=== PATIENT | female | born 1935 | race Caucasian/White ===

== ENCOUNTER 2019-03-17 12:51 | Inpatient (IN) | payer MEDICARE ==
[2019-03-17] MEDS ORDERED: guaiFENesin 100 MG/5 ML UDCUP PO PRN (15:51)
[2019-03-17] MEDS ORDERED: Calcium Carbonate 500 MG ChewTAB PO PRN (15:51)
[2019-03-17] MEDS ORDERED: Acetaminophen 325 MG TAB PO PRN (15:51)
[2019-03-17] MEDS ORDERED: Calcium Carbonate 500 MG TAB PO PRN (15:51)
[2019-03-17] MEDS ORDERED: Loperamide HCl 2 MG CAP PO PRN (15:51)
[2019-03-17] MEDS ORDERED: Milk Of Magnesia 30 ML UDCUP PO PRN (15:51)
[2019-03-17] MEDS ORDERED: Bisacodyl 10 MG SUPP PR PRN (15:51)
[2019-03-17] MEDS: Amlodipine 5 MG TAB PO SCH (20:04)
[2019-03-17] MEDS: Gabapentin 400 MG CAP PO SCH (20:04)
[2019-03-17] MEDS: Amitriptyline HCl 25 MG TAB PO SCH (20:04)
[2019-03-18] MEDS: Polyethylene Glycol 3350 17 GM Packet PO SCH (08:35)
[2019-03-18] MEDS: Gabapentin 400 MG CAP PO SCH ×3 (08:35→20:27)
[2019-03-18] MEDS: Enoxaparin Sodium 30 MG/0.3 ML SYRINGE SC SCH (08:36)
[2019-03-18] MEDS: HYDROcodone/Acetaminophen 5/325 mg Tablet PO PRN ×3 (11:13→23:13)
[2019-03-18 19:39] LABS: ALT (SGPT) 31 U/L (8-55); AST (SGOT) 24 U/L (5-34); Albumin 3.7 g/dL (3.4-4.8); Alkaline Phosphatase 98 U/L (40-110); Anion Gap 15 mmol/L (10-20); BUN (Urea Nitrogen) 25 mg/dL (9.8-20.1); Bilirubin, Total 0.3 mg/dL (0.2-1.2); Calc. Creatinine Clearance 61 mL/min (70-130); Calcium 9.1 mg/dL (7.8-10.44); Carbon Dioxide 22 mmol/L (23-31); Chloride 107 mmol/L (98-107); Estimated GFR-MDRD 48; Globulin 2.9 g/dL (2.4-3.5); Glucose 172 mg/dL (83-110); Potassium 4.1 mmol/L (3.5-5.1); Protein, Total 6.6 g/dL (6.0-8.3); Sodium 140 mmol/L (136-145)
[2019-03-18 20:16] LABS: #Eosinphils 0.2 thou/uL (0.0-0.7); #Lymphocytes 1.1 thou/uL (1.20-3.40); #Monocytes 0.5 thou/uL (0.11-0.59); #Neutrophils 3.4 thou/uL (1.40-6.50); %Basophils 0.8 % (0.0-1.0); %Eosinophils 3.7 % (0.0-10.0); %Lymphocytes 20.8 % (21.0-51.0); %Neutrophils 65.7 % (42.0-75.0); Hemoglobin 9.1 g/dL (12.0-16.0); Hypochromia SLIGHT = 6-15 cells (100X) (0-5/hpf); MDiff Complete? YES; Mean Corpuscular HGB CONC 29.5 g/dL (32.0-36.0); Mean Corpuscular Hemoglobin 21.1 pg (27.0-31.0); Mean Corpuscular Volume 71.6 fL (78.0-98.0); Mean Platelet Volume 8.2 fL (7.4-10.4); Microcytosis MODERATE=15-30 cells (100X) (0-5/hpf); Ovalocytes SLIGHT = 2-5 cells (100X) (0-1/hpf); Platelet Count 308 thou/uL (130-400); Platelet Morphology Comment Appears Adequate; RBC Distribution Width 17.3 % (11.5-14.5); Red Blood Cell (RBC) Count 4.29 mill/uL (4.20-5.40); White Blood Cell (WBC) Count 5.1 thou/uL (4.8-10.8)
[2019-03-18] MEDS: Amitriptyline HCl 25 MG TAB PO SCH (20:27)
[2019-03-18] MEDS: Amlodipine 5 MG TAB PO SCH (20:27)
[2019-03-19] MEDS: HYDROcodone/Acetaminophen 5/325 mg Tablet PO PRN ×4 (06:28→20:05)
--- NOTE | 2019-03-19 09:09 | HP ---
Date of admission to the skilled unit, March 18, 2019. HISTORY OF PRESENT ILLNESS: The patient is an unfortunate 83-year-old white female who has been found to have significant lumbar spinal stenosis and right lumbar foraminal stenosis with a severe right lumbar radiculopathy causing her to have weakness and pain in her right leg. She has been seen by Neurosurgery and given epidural steroid injection with minimal relief from her pain. She has been attempted to have physical therapy at [facility] for 2 weeks with minimal improvement. She is due to see Dr. Caldera on March 22 for followup and evaluation of treatment. She has had extensive lumbar surgery [address] Vieyra with placement of screws and with removal of two out of four screws several years ago. She had been doing well until several months ago when she began to have increasing right lower back pain and leg pain. She has comorbidities of diastolic heart failure and hypertension, which has been fairly well controlled with some titration of her medications while she is in [facility]. She has had no problems with shortness of breath, chest pain, palpitations with exertion. She did have some mild exacerbation of her chronic kidney disease, stage 3 to stage 4, but improved with discontinuation of her diuretic. She was admitted to [facility] to continue therapy until hopefully she can be evaluated for possible lumbar surgery by Dr. Caldera. PAST MEDICAL HISTORY: Also positive for hypertension, depression, gastroesophageal reflux, and chronic kidney disease, stage 3, as mentioned above. PAST SURGICAL HISTORY: Positive for lumbar laminectomy in place with screws, appendectomy, hysterectomy, tonsillectomy, bilateral knee surgeries, and . MEDICATIONS: Her medications included on admission: 1. Hydrocodone 5/325 every 4 hours as needed. 2. Amlodipine 5 mg nightly. 3. Amitriptyline 25 mg nightly. 4. Acetaminophen 325 mg every 4 hours as needed. 5. Benazepril 10 mg every morning. 6. Protonix 40 mg daily. 7. MiraLAX 17 g daily. 8. Sertraline 100 mg daily. FAMILY MEDICAL HISTORY: Noncontributory. SOCIAL HISTORY: She lives with her daughter who works daily. She is a nonsmoker, nondrinker. REVIEW OF SYSTEMS: HEENT: She denies change in vision or hearing, hoarseness, dysphagia, headaches, or dizziness. PULMONARY: She denies cough, sputum production, pneumonia, asthma, or tuberculosis. CARDIOVASCULAR: She denies shortness of breath, chest pain, palpitations, orthopnea, paroxysmal nocturnal dyspnea, or edema. GASTROINTESTINAL: She denies nausea, vomiting, diarrhea, constipation, or abdominal pain. GENITOURINARY: She denies dysuria, hematuria, or nocturia. She does have some urgency at times. MUSCULOSKELETAL: She has pain in her right knee. NEUROLOGIC: She has paresthesias and pain in the right hip, buttock, lower back, and knee. PHYSICAL EXAMINATION: GENERAL: The patient is an elderly white female, alert, oriented, lucid, in no acute distress. VITAL SIGNS: Showed to have blood pressure of 120/57, O2 sats 93% on room air, respirations 16, pulse 80, and afebrile. HEENT: Pupils are equal, round, and reactive to light and accommodation. Sclerae anicteric. Conjunctivae pale. Oral mucous membranes well hydrated. NECK: Supple. There are no nodes or masses. JVP is not elevated. LUNGS: Clear. CARDIAC: Regular rhythm. No gallops or murmurs. ABDOMEN: Soft and nontender. No masses or organomegaly. SKIN/EXTREMITIES: Show positive straight leg raise on the right at 30 degrees. Tenderness to palpation of the right knee. There is no pain on palpation of the right hip. There is some tenderness to palpation of the lower back. NEUROLOGICAL: Cranial nerves are intact. Deep tendon reflex 2+ and equal. Absent Babinski. There is normal strength with paresthesias in the right leg and pain on movement. LABORATORY: Shows most recent creatinine is 1.02, BUN is 23, sodium 139, potassium 4.4, chloride 109, and bicarb 21. Hematocrit 31, hemoglobin 9.6, and white count 7400. ASSESSMENT: 1. An 83-year-old white female with history of hypertension, controlled to goal. 2. 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 Admitted for continue therapy until seen by Dr. Caldera on March 22 for possible surgery. 3. Chronic kidney disease with recent exacerbation of chronic kidney disease, stage 4, now stable. PLAN: 1. Obtain CBC, comp met. 2. Continue PT/OT. 3. Continue pain relief with [place]. 4. Continue blood pressure control with amlodipine and benazepril. 5. Continue stress ulcer prophylaxis DVT prophylaxis with Lovenox. Job ID: [id number]
[2019-03-19] MEDS: Gabapentin 400 MG CAP PO SCH ×3 (09:53→20:06)
[2019-03-19] MEDS: Enoxaparin Sodium 30 MG/0.3 ML SYRINGE SC SCH (09:54)
[2019-03-19] MEDS: Polyethylene Glycol 3350 17 GM Packet PO SCH ×2 (09:54→10:00)
[2019-03-19] MEDS: Amitriptyline HCl 25 MG TAB PO SCH (20:06)
[2019-03-19] MEDS: Amlodipine 5 MG TAB PO SCH (20:06)
[2019-03-20] MEDS: HYDROcodone/Acetaminophen 5/325 mg Tablet PO PRN ×4 (00:45→19:24)
[2019-03-20] MEDS: Gabapentin 400 MG CAP PO SCH ×3 (08:28→20:15)
[2019-03-20] MEDS: Polyethylene Glycol 3350 17 GM Packet PO SCH (08:28)
[2019-03-20] MEDS: Enoxaparin Sodium 30 MG/0.3 ML SYRINGE SC SCH (08:28)
[2019-03-20] MEDS: Amitriptyline HCl 25 MG TAB PO SCH (20:15)
[2019-03-20] MEDS: Amlodipine 5 MG TAB PO SCH (20:15)
--- NOTE | 2019-03-21 06:55 | PRG ---
DATE OF SERVICE: 03/19/2019 SUBJECTIVE: The patient is sitting up in a wheelchair, getting ready for therapy, stating that she has significant pain on any therapy and her leg fran, but is walking with a walker a few feet. She has no pain at rest. She is having no headaches, dizziness, shortness of breath or chest pain. OBJECTIVE: VITAL SIGNS: Temperature is 97, pulse 95, respirations 18, O2 sats 97% on room air, blood pressure is 140/76. LUNGS: Clear. CARDIAC EXAMINATION: Shows regular rhythm. ABDOMEN: Soft, nontender. SKIN/EXTREMITIES: Showed no edema, clubbing, cyanosis. There is tenderness to palpation in the right lower back and on extension of the right leg. LABORATORY DATA: Laboratories done yesterday showed a white count of 5100, hematocrit of 30, hemoglobin 9.1. Sodium 140, potassium 4.1, chloride 107, bicarb 22, BUN 25, creatinine 1.08, glucose 172, calcium 9.1, total bilirubin 0.3, AST 24, ALT 31, alkaline phosphatase 99, albumin 3.7. ASSESSMENT: 1. Hypertension, controlled to goal. 2. Right L4 lumbar radiculopathy persistent with minimal improvement with physical therapy, but cooperating. 3. Chronic kidney disease stage 4, which has improved to stage 3. 4. Depression and anxiety, stable. PLAN: Continue PT, OT until seen by neurosurgeon on March 22. Job ID: [id number]
--- NOTE | 2019-03-21 07:06 | PRG ---
DATE OF SERVICE: 03/20/2019 SUBJECTIVE: The patient is sitting up in the chair, talking to daughter, arranging transportation to neurosurgeon. She is pain-free at rest, but is unable to walk without assistance because of pain and weakness in her leg. OBJECTIVE: VITAL SIGNS: Show temperature 98.3, pulse 80, respirations 20, O2 sats 98% on room air, blood pressure fluctuating between 137/73 and 174/78. LUNGS: Clear. CARDIAC EXAMINATION: Shows regular rhythm. ABDOMEN: Soft and nontender. SKIN/EXTREMITIES: Showed no edema. ASSESSMENT: 1. Stable L4-L5 lumbar radiculopathy with minimal improvement with PT. 2. Hypertension, controlled to goal. 3. Chronic kidney disease, stage 3. PLAN: 1. Arrange for ambulance transfer to neurosurgeon on March 22, to be there at 10 o'clock as daughter states she cannot load and unload the patient without assistance. 2. Continue pain relief as needed. 3. Continue to monitor vital signs with fluctuation, most likely due to pain. Job ID: [id number]
[2019-03-21] MEDS: Polyethylene Glycol 3350 17 GM Packet PO SCH (09:25)
[2019-03-21] MEDS: Gabapentin 400 MG CAP PO SCH ×3 (09:25→20:22)
[2019-03-21] MEDS: Enoxaparin Sodium 30 MG/0.3 ML SYRINGE SC SCH (09:25)
[2019-03-21] MEDS: HYDROcodone/Acetaminophen 5/325 mg Tablet PO PRN ×2 (13:42→20:22)
[2019-03-21] MEDS: Amitriptyline HCl 25 MG TAB PO SCH (20:23)
[2019-03-21] MEDS: Amlodipine 5 MG TAB PO SCH (20:23)
--- NOTE | 2019-03-21 21:11 | PRG ---
DATE OF SERVICE: 03/21/2019 SUBJECTIVE: The patient feels well sitting in the chair, but states she had significant pain today on any ambulation even to the bathroom. She is due to see neurosurgeon tomorrow morning and is hopeful that he will agree to surgically repair her lumbar stenosis and radiculopathy. OBJECTIVE: VITAL SIGNS: Shows her temperature is 98.5, pulse 94, respirations 18, O2 saturations 96% on room air, blood pressure 149/73. LUNGS: Clear. CARDIAC: Regular rhythm. SKIN/EXTREMITIES: Show no edema. ASSESSMENT: 1. Stable lumbar spinal stenosis with lumbar radiculopathy with minimal improvement with PT and epidural steroid. 2. Hypertension, controlled to goal. 3. Chronic kidney disease, stage 3, stable. PLAN: Follow up with Neurosurgery tomorrow and hopefully be scheduled for laminectomy and to return for postop physical therapy. Job ID: [id number]
[2019-03-22] MEDS: Enoxaparin Sodium 30 MG/0.3 ML SYRINGE SC SCH (08:20)
[2019-03-22] MEDS: Gabapentin 400 MG CAP PO SCH ×3 (08:21→20:15)
[2019-03-22] MEDS: Polyethylene Glycol 3350 17 GM Packet PO SCH (08:21)
[2019-03-22] MEDS: HYDROcodone/Acetaminophen 5/325 mg Tablet PO PRN ×3 (08:22→20:15)
[2019-03-22] MEDS: Amlodipine 5 MG TAB PO SCH (20:15)
[2019-03-22] MEDS: Amitriptyline HCl 25 MG TAB PO SCH (20:16)
[2019-03-23] MEDS: Gabapentin 400 MG CAP PO SCH ×3 (08:22→20:55)
[2019-03-23] MEDS: Polyethylene Glycol 3350 17 GM Packet PO SCH (08:22)
[2019-03-23] MEDS: Enoxaparin Sodium 30 MG/0.3 ML SYRINGE SC SCH (08:22)
[2019-03-23] MEDS: HYDROcodone/Acetaminophen 5/325 mg Tablet PO PRN ×2 (08:23→20:54)
[2019-03-23] MEDS: Amitriptyline HCl 25 MG TAB PO SCH (20:55)
[2019-03-23] MEDS: Amlodipine 5 MG TAB PO SCH (20:55)
[2019-03-24] MEDS: Enoxaparin Sodium 30 MG/0.3 ML SYRINGE SC SCH (08:37)
[2019-03-24] MEDS: HYDROcodone/Acetaminophen 5/325 mg Tablet PO PRN ×2 (08:38→13:20)
[2019-03-24] MEDS: Polyethylene Glycol 3350 17 GM Packet PO SCH (08:39)
[2019-03-24] MEDS: Gabapentin 400 MG CAP PO SCH ×3 (08:39→20:43)
--- NOTE | 2019-03-24 09:43 | PRG ---
DATE OF SERVICE: 03/23/2019 SUBJECTIVE: The patient feels well, sitting up in the chair. States that Dr. Chacon and her daughter and she have agreed to schedule surgery and awaiting a date. She will continue on therapy until that time and is very happy. OBJECTIVE: VITAL SIGNS: Blood pressure is 164/72, temperature 98, pulse 76, respirations 18, O2 saturations 93% on room air. LUNGS: Clear. CARDIAC: Showed regular rhythm. ABDOMEN: Soft, nontender. ASSESSMENT: 1. Lumbar spinal stenosis and right L4-L5 radiculopathy awaiting surgical scheduling by Dr. Chacon. 2. Hypertension, controlled to goal. 3. Chronic kidney disease stage 3, stable. PLAN: 1. Continue PT and OT. 2. Continue pain relief. 3. Follow up with Dr. Chacon when scheduled. Job ID: [id number]
--- NOTE | 2019-03-24 09:43 | PRG ---
DATE OF SERVICE: 03/24/2019 SUBJECTIVE: The patient feels well at rest, but has pain on any ambulation and is going to see her surgeon today. OBJECTIVE: VITAL SIGNS: Showed temperature is 98.1, pulse 84, respirations 18, O2 saturations 96% on room air, blood pressure 165/77. LUNGS: Clear. CARDIAC: Showed regular rhythm. ABDOMEN: Soft and nontender. SKIN/EXTREMITIES: Showed some tenderness to palpation of the right lower back and on extension of the right leg. ASSESSMENT: 1. Lumbar spinal stenosis, status post multiple surgeries in the past with right L4-L5 radiculopathy. 2. Stable chronic kidney disease, stage 3. 3. Stable hypertension. PLAN: Follow up with Dr. Chacon today and hopefully schedule surgery. Job ID: [id number]
--- NOTE | 2019-03-24 09:45 | PRG ---
DATE OF SERVICE: 03/24/2019 SUBJECTIVE: The patient is sitting up in chair, eating breakfast, waiting for physical therapy. She states she feels well at rest and therapist states she did cooperate standing 5 minutes yesterday before the pain caused her to sit down. OBJECTIVE: VITAL SIGNS: Shows blood pressure is 150/70, temperature is 98, pulse 88, respirations 18, and O2 sats 96% on room air. LUNGS: Clear. CARDIAC: Showed regular rhythm. ABDOMEN: Soft and nontender. SKIN/EXTREMITIES: Show no edema, clubbing, or cyanosis. ASSESSMENT: 1. Stable L4-L5 radiculopathy, awaiting surgical repair. 2. Hypertension, controlled to goal. 3. Chronic kidney disease stage 3, stable. PLAN: 1. CBC, comprehensive metabolic panel in the a.m. 2. Continue PT/OT. 3. Await scheduling of surgery by Dr. Chacon. Job ID: [id number]
[2019-03-24] MEDS: Amitriptyline HCl 25 MG TAB PO SCH (20:42)
[2019-03-24] MEDS: Amlodipine 5 MG TAB PO SCH (20:42)
[2019-03-25 05:40] LABS: #Basophils 0.1 thou/uL (0.0-0.2); #Eosinphils 0.2 thou/uL (0.0-0.7); #Lymphocytes 1.4 thou/uL (1.20-3.40); #Monocytes 0.5 thou/uL (0.11-0.59); #Neutrophils 3.7 thou/uL (1.40-6.50); %Basophils 1.1 % (0.0-1.0); %Lymphocytes 23.5 % (21.0-51.0); %Monocytes 8.2 % (0.0-10.0); %Neutrophils 63.3 % (42.0-75.0); Hemoglobin 9.1 g/dL (12.0-16.0); MDiff Complete? YES; Mean Corpuscular HGB CONC 29.6 g/dL (32.0-36.0); Mean Corpuscular Volume 70.8 fL (78.0-98.0); Mean Platelet Volume 8.9 fL (7.4-10.4); Microcytosis MARKED = >30 cells (100X) (0-5/hpf); Ovalocytes SLIGHT = 2-5 cells (100X) (0-1/hpf); Platelet Count 306 thou/uL (130-400); Platelet Morphology Comment Appears Adequate; RBC Distribution Width 16.6 % (11.5-14.5); Red Blood Cell (RBC) Count 4.33 mill/uL (4.20-5.40); White Blood Cell (WBC) Count 5.9 thou/uL (4.8-10.8)
[2019-03-25 05:43] LABS: ALT (SGPT) 21 U/L (8-55); AST (SGOT) 17 U/L (5-34); Albumin 3.6 g/dL (3.4-4.8); Alkaline Phosphatase 87 U/L (40-110); Anion Gap 13 mmol/L (10-20); BUN (Urea Nitrogen) 22 mg/dL (9.8-20.1); Bilirubin, Total 0.2 mg/dL (0.2-1.2); Calc. Creatinine Clearance 63 mL/min (70-130); Carbon Dioxide 22 mmol/L (23-31); Chloride 107 mmol/L (98-107); Estimated GFR-MDRD 51; Globulin 2.7 g/dL (2.4-3.5); Glucose 113 mg/dL (83-110); Potassium 4.1 mmol/L (3.5-5.1); Protein, Total 6.3 g/dL (6.0-8.3); Sodium 138 mmol/L (136-145)
[2019-03-25] MEDS: Polyethylene Glycol 3350 17 GM Packet PO SCH (08:44)
[2019-03-25] MEDS: Enoxaparin Sodium 30 MG/0.3 ML SYRINGE SC SCH (08:45)
[2019-03-25] MEDS: Gabapentin 400 MG CAP PO SCH ×3 (08:45→20:03)
[2019-03-25] MEDS: Amitriptyline HCl 25 MG TAB PO SCH (20:02)
[2019-03-25] MEDS: Amlodipine 5 MG TAB PO SCH (20:03)
[2019-03-25] MEDS: HYDROcodone/Acetaminophen 5/325 mg Tablet PO PRN (20:04)
--- NOTE | 2019-03-26 06:19 | PRG ---
DATE OF SERVICE: 03/25/2019 SUBJECTIVE: The patient feels well, sitting up in the chair, eating her supper. Has been tolerating therapy but is awaiting scheduling of her laminectomy. OBJECTIVE: VITAL SIGNS: Shows temperature is 98, pulse 86, respirations 18, O2 sats 93% on room air, and blood pressure 134/71. LUNGS: Clear. CARDIAC: Regular rhythm. ABDOMEN: Soft, nontender. LABORATORY DATA: White count 5900, hematocrit 30, and hemoglobin 9.1. Sodium is 138, potassium 4.1, chloride 107, bicarb 22, BUN 22, creatinine 1.04, glucose 113, calcium 9.0, AST 17, and ALT 21. ASSESSMENT: 1. Lumbar radiculopathy secondary to lumbar spinal stenosis. 2. Chronic kidney disease, stage 3, stable. 3. Hypertension, controlled to goal. PLAN: Continue PT/OT until surgery schedule which apparently is another two weeks. We will confirm date later. Job ID: [id number]
--- NOTE | 2019-03-26 06:39 | PRG ---
DATE OF SERVICE: 03/26/2019 SUBJECTIVE: The patient is sleeping, resting well with no complaints from nurses. OBJECTIVE: VITAL SIGNS: Blood pressure is 134/71 and pulse 86. LUNGS: Clear. CARDIAC: Regular rhythm. SKIN/EXTREMITIES: Show no edema, clubbing, or cyanosis. ASSESSMENT: 1. Stable lumbar radiculopathy. 2. Lumbar spinal stenosis. 3. Hypertension, controlled to goal. 4. Chronic kidney disease, stage 3, stable. PLAN: 1. Continue PT/OT. 2. Await neurosurgery by Dr. Chacon on April 06. 3. Continue to monitor blood pressure and vital signs closely. Job ID: [id number]
[2019-03-26] MEDS: Gabapentin 400 MG CAP PO SCH ×3 (08:22→19:17)
[2019-03-26] MEDS: Polyethylene Glycol 3350 17 GM Packet PO SCH (08:23)
[2019-03-26] MEDS: HYDROcodone/Acetaminophen 5/325 mg Tablet PO PRN ×2 (08:23→14:32)
[2019-03-26] MEDS: Enoxaparin Sodium 30 MG/0.3 ML SYRINGE SC SCH (08:23)
[2019-03-26] MEDS: Amlodipine 5 MG TAB PO SCH (19:16)
[2019-03-26] MEDS: Amitriptyline HCl 25 MG TAB PO SCH (19:16)
[2019-03-27] MEDS: Enoxaparin Sodium 30 MG/0.3 ML SYRINGE SC SCH (08:40)
[2019-03-27] MEDS: Gabapentin 400 MG CAP PO SCH ×3 (08:41→20:45)
[2019-03-27] MEDS: Polyethylene Glycol 3350 17 GM Packet PO SCH (08:41)
[2019-03-27] MEDS: HYDROcodone/Acetaminophen 5/325 mg Tablet PO PRN (08:41)
--- NOTE | 2019-03-27 15:53 | PRG ---
DATE OF SERVICE: 03/27/2019 SUBJECTIVE: Ms. Medina is up in her chair and denies any complaints. She apparently is scheduled for her back surgery on the . No family at bedside. Discussed with nursing. OBJECTIVE: VITAL SIGNS: She is afebrile. Heart rate 76, respirations 18, oxygen saturation 96% on room air, blood pressure 139/67. CARDIOVASCULAR: S1 and S2 plus. RESPIRATORY: Normal vesicular breath sounds. ABDOMEN: Soft and nontender. Bowel sounds heard in all quadrants. EXTREMITIES: Without cyanosis or clubbing. CENTRAL NERVOUS SYSTEM: Grossly nonfocal except for stable lumbar radiculopathy. IMPRESSION: 1. Lumbar radiculopathy due to spinal stenosis. 2. Hypertension. 3. Chronic kidney disease, stage 3. 4. Depression. 5. Deconditioning. PLAN: 1. Continue current medications. 2. Low-sodium diet. 3. PT/OT. 4. DVT prophylaxis per primary service. 5. Decubitus precautions. 6. Stress ulcer prophylaxis. 7. Routine laboratory values. Job ID: [id number]
[2019-03-27] MEDS: Amlodipine 5 MG TAB PO SCH (20:44)
[2019-03-27] MEDS: Amitriptyline HCl 25 MG TAB PO SCH (20:45)
[2019-03-28] MEDS: Enoxaparin Sodium 30 MG/0.3 ML SYRINGE SC SCH (08:28)
[2019-03-28] MEDS: Gabapentin 400 MG CAP PO SCH ×3 (08:28→21:00)
[2019-03-28] MEDS: HYDROcodone/Acetaminophen 5/325 mg Tablet PO PRN ×2 (08:28→21:03)
[2019-03-28] MEDS: Polyethylene Glycol 3350 17 GM Packet PO SCH (08:30)
--- NOTE | 2019-03-28 15:46 | PRG ---
DATE OF SERVICE: 03/28/2019 SUBJECTIVE: Ms. Medina is up in her wheelchair, and denies any complaints. She is happy with her progress. No family at bedside. Discussed with nursing. OBJECTIVE: VITAL SIGNS: She is afebrile, heart rate 91, respirations 18, oxygen saturation 94% on room air, blood pressure 156/78. CARDIOVASCULAR: S1 and S2 plus. RESPIRATORY: Normal vesicular breath sounds. ABDOMEN: Soft and nontender. Bowel sounds heard in all quadrants. EXTREMITIES: Without cyanosis or clubbing. CENTRAL NERVOUS SYSTEM: Stable lumbar radiculopathy. IMPRESSION: 1. Lumbar radiculopathy due to spinal stenosis. 2. Hypertension, well controlled. 3. Chronic kidney disease, stage 3. 4. Depression. 5. Deconditioning. PLAN: 1. Continue current medications. 2. Low-sodium diet. 3. Monitor blood pressure and adjust medications as needed. 4. Continue physical therapy. 5. DVT and stress ulcer prophylaxis. 6. Decubitus precaution. 7. Routine laboratory values. 8. Surgery apparently scheduled for March, per Dr. Evans, [facility]. Job ID: [id number]
[2019-03-28] MEDS: Amlodipine 5 MG TAB PO SCH (21:00)
[2019-03-28] MEDS: Amitriptyline HCl 25 MG TAB PO SCH (21:00)
[2019-03-29] MEDS: Enoxaparin Sodium 30 MG/0.3 ML SYRINGE SC SCH (08:33)
[2019-03-29] MEDS: HYDROcodone/Acetaminophen 5/325 mg Tablet PO PRN ×2 (08:34→17:14)
[2019-03-29] MEDS: Gabapentin 400 MG CAP PO SCH ×3 (08:35→20:05)
[2019-03-29] MEDS: Polyethylene Glycol 3350 17 GM Packet PO SCH (08:36)
[2019-03-29] MEDS: Amlodipine 5 MG TAB PO SCH (20:02)
[2019-03-29] MEDS: Amitriptyline HCl 25 MG TAB PO SCH (20:02)
[2019-03-30] MEDS: Gabapentin 400 MG CAP PO SCH ×3 (08:02→19:35)
[2019-03-30] MEDS: Enoxaparin Sodium 30 MG/0.3 ML SYRINGE SC SCH (08:03)
[2019-03-30] MEDS: Polyethylene Glycol 3350 17 GM Packet PO SCH (08:03)
[2019-03-30] MEDS: HYDROcodone/Acetaminophen 5/325 mg Tablet PO PRN (08:05)
[2019-03-30] MEDS: Amitriptyline HCl 25 MG TAB PO SCH (19:35)
[2019-03-30] MEDS: Amlodipine 5 MG TAB PO SCH (19:35)
--- NOTE | 2019-03-30 21:16 | PRG ---
DATE OF SERVICE: 03/29/2019 SUBJECTIVE: The patient feels well. No complaints. Sitting in a chair. Has been cooperating with therapy by ambulating with wheelchair, but no other ambulation. OBJECTIVE: VITAL SIGNS: Blood pressure is 149/71, temperature 97, pulse 83, respirations 20, O2 saturations 92% on room air. LUNGS: Clear. CARDIAC: Shows regular rhythm. ABDOMEN: Soft and nontender. EXTREMITIES: 1+ edema. No clubbing or cyanosis. NEUROLOGIC: Intact. ASSESSMENT: 1. Persistent right lumbar radiculopathy due to spinal stenosis. 2. Hypertension, controlled to goal. 3. Chronic kidney disease, stage 3. 4. Deconditioning, improving. PLAN: 1. Continue PT/OT. 2. Review labs and therapist notes. 3. Continue stress ulcer and DVT prophylaxis. 4. Continue pain relief as needed. Job ID: [id number]
--- NOTE | 2019-03-30 22:16 | PRG ---
DATE OF SERVICE: 03/30/2019 SUBJECTIVE: The patient feels well. Sitting in chair. She is only able to transfer with assistance and is not able to walk at all. OBJECTIVE: VITAL SIGNS: Show her blood pressure is 155/73, temperature 97, pulse 81, respirations 20, O2 saturations 93% on room air. LUNGS: Clear. CARDIAC: Showed regular rhythm. ABDOMEN: Soft and nontender. SKIN/EXTREMITIES: Show tenderness to palpation in the right lower back. Positive straight leg raise. ASSESSMENT: 1. Persistent right lumbar radiculopathy with inability to stand secondary to weakness in her leg. 2. Stable hypertension. 3. Stable chronic kidney disease 3. 4. Deconditioning, so improving with work and wheelchair, but unable to stand. PLAN: 1. Continue PT/OT. 2. Continue pain relief as needed. 3. Continue to monitor closely for urinary and fecal incontinence or increasing back pain. 4. Await surgical treatment on April 09. Job ID: [id number]
[2019-03-31] MEDS: Enoxaparin Sodium 30 MG/0.3 ML SYRINGE SC SCH (08:46)
[2019-03-31] MEDS: Polyethylene Glycol 3350 17 GM Packet PO SCH (08:46)
[2019-03-31] MEDS: Gabapentin 400 MG CAP PO SCH ×3 (08:46→21:17)
[2019-03-31] MEDS: HYDROcodone/Acetaminophen 5/325 mg Tablet PO PRN (08:47)
[2019-03-31] MEDS: Amitriptyline HCl 25 MG TAB PO SCH (21:16)
[2019-03-31] MEDS: Amlodipine 5 MG TAB PO SCH (21:16)
--- NOTE | 2019-04-01 05:55 | PRG ---
DATE OF SERVICE: 03/31/2019 SUBJECTIVE: The patient feels well, sitting up in the chair, cooperating with therapy, counting the days until her surgery. OBJECTIVE: VITAL SIGNS: Shows her blood pressure is 135/66, temperature is 96, pulse 81, respirations 20, O2 saturations 95% on room air. LUNGS: Clear. CARDIAC: Shows regular rhythm. ABDOMEN: Soft and nontender. SKIN/EXTREMITIES: Show no edema, clubbing, or cyanosis. ASSESSMENT: 1. Right lumbar radiculopathy secondary to spinal stenosis. Awaiting neurosurgical therapy next week. 2. Hypertension, controlled to goal. 3. Chronic kidney disease, stage 3, stable. PLAN: 1. Repeat CBC, comprehensive metabolic profile in the a.m. 2. Continue PT/OT as tolerated. 3. Continue to monitor and control blood pressure. 4. Continue stress ulcer and DVT prophylaxis. Job ID: [id number]
--- NOTE | 2019-04-01 06:18 | PRG ---
DATE OF SERVICE: 03/31/2019 SUBJECTIVE: The patient feels well sitting in the chair and has been moving around with the wheelchair, but not walking because of severe pain in her right leg on any walking. She denies any chest pain, shortness of breath, nausea, or vomiting. OBJECTIVE: VITAL SIGNS: Temperature is 98.3, pulse 99, respirations 20, O2 saturation 97% on room air, blood pressure 174/100. LUNGS: Clear. CARDIAC: Regular rhythm. ABDOMEN: Soft and nontender. MUSCULOSKELETAL: There is minimal tenderness to palpation over the lower back and hip. ASSESSMENT: 1. Lumbar spinal stenosis with right lumbar radiculopathy. 2. Chronic kidney disease stage 3. 3. Hypertension, controlled to goal, with mild elevation this afternoon. PLAN: 1. Continue to monitor vital signs closely. 2. Continue to stress oral intake. 3. Continue PT/OT. 4. Await neurosurgical treatment on April 09. Job ID: [id number]
[2019-04-01 06:46] LABS: ALT (SGPT) 12 U/L (8-55); AST (SGOT) 13 U/L (5-34); Albumin 3.6 g/dL (3.4-4.8); Alkaline Phosphatase 83 U/L (40-110); Anion Gap 11 mmol/L (10-20); BUN (Urea Nitrogen) 25 mg/dL (9.8-20.1); Bilirubin, Total 0.3 mg/dL (0.2-1.2); Calc. Creatinine Clearance 70 mL/min (70-130); Calcium 8.8 mg/dL (7.8-10.44); Carbon Dioxide 24 mmol/L (23-31); Chloride 110 mmol/L (98-107); Estimated GFR-MDRD 57; Globulin 2.5 g/dL (2.4-3.5); Glucose 109 mg/dL (83-110); Protein, Total 6.1 g/dL (6.0-8.3); Sodium 141 mmol/L (136-145)
[2019-04-01 06:50] LABS: #Basophils 0.1 thou/uL (0.0-0.2); #Eosinphils 0.2 thou/uL (0.0-0.7); #Monocytes 0.4 thou/uL (0.11-0.59); #Neutrophils 3.9 thou/uL (1.40-6.50); %Basophils 1.2 % (0.0-1.0); %Eosinophils 2.9 % (0.0-10.0); %Lymphocytes 22.5 % (21.0-51.0); %Monocytes 6.6 % (0.0-10.0); %Neutrophils 66.8 % (42.0-75.0); Hemoglobin 9.1 g/dL (12.0-16.0); Mean Corpuscular HGB CONC 29.3 g/dL (32.0-36.0); Mean Corpuscular Hemoglobin 20.5 pg (27.0-31.0); Mean Corpuscular Volume 70.1 fL (78.0-98.0); Mean Platelet Volume 8.9 fL (7.4-10.4); Platelet Count 327 thou/uL (130-400); RBC Distribution Width 16.5 % (11.5-14.5); Red Blood Cell (RBC) Count 4.45 mill/uL (4.20-5.40); White Blood Cell (WBC) Count 5.9 thou/uL (4.8-10.8)
[2019-04-01 06:52] LABS: MDiff Complete? YES
[2019-04-01 06:55] LABS: Anisocytosis SLIGHT = 6-15 cells (100X) (0-5/hpf); Hypochromia SLIGHT = 6-15 cells (100X) (0-5/hpf); Microcytosis SLIGHT = 6-15 cells (100X) (0-5/hpf); Platelet Morphology Comment Appears Adequate
[2019-04-01] MEDS: HYDROcodone/Acetaminophen 5/325 mg Tablet PO PRN ×3 (08:24→20:11)
[2019-04-01] MEDS: Gabapentin 400 MG CAP PO SCH ×3 (08:24→20:11)
[2019-04-01] MEDS: Enoxaparin Sodium 30 MG/0.3 ML SYRINGE SC SCH (08:24)
[2019-04-01] MEDS: Polyethylene Glycol 3350 17 GM Packet PO SCH (09:17)
[2019-04-01] MEDS: Amlodipine 5 MG TAB PO SCH (20:11)
[2019-04-01] MEDS: Amitriptyline HCl 25 MG TAB PO SCH (20:11)
[2019-04-02] MEDS: Enoxaparin Sodium 30 MG/0.3 ML SYRINGE SC SCH (08:34)
[2019-04-02] MEDS: Polyethylene Glycol 3350 17 GM Packet PO SCH (08:35)
[2019-04-02] MEDS: Gabapentin 400 MG CAP PO SCH ×3 (08:35→20:27)
[2019-04-02] MEDS: HYDROcodone/Acetaminophen 5/325 mg Tablet PO PRN ×2 (08:37→20:27)
[2019-04-02] MEDS: Amitriptyline HCl 25 MG TAB PO SCH (20:27)
[2019-04-02] MEDS: Amlodipine 5 MG TAB PO SCH (20:27)
--- NOTE | 2019-04-03 07:32 | PRG ---
DATE OF SERVICE: 04/01/2019 SUBJECTIVE: The patient is sitting up in chair, finished with therapy today. She is feeling well. No complaints, very cheerful, anticipating her surgery next week. OBJECTIVE: VITAL SIGNS: Shows her to have temperature 97.3 pulse 73, respirations 18, O2 sats 94% on room air, blood pressure 142/71. LUNGS: Clear. CARDIAC: Shows regular rhythm. ABDOMEN: Soft and nontender. SKIN/EXTREMITIES: Show no edema, clubbing or cyanosis. There is pain on standing or extension of the right leg. LABORATORY DATA: Show hematocrit 30.8, hemoglobin 9.1, white count 5900. Sodium 141, potassium 4.0, chloride 110, bicarb 24, BUN 25, creatinine 0.94. Liver functions normal. ASSESSMENT: 1. An 83-year-old white female with a history of significant lumbar stenosis, status post multiple surgeries before. Awaiting neuro surgery and release of right lumbar radiculopathy on April 09. 2. Hypertension, controlled to goal. 3. Chronic kidney disease, stage 3 stable. PLAN: Continue PT, OT. Continue to monitor vital signs closely. Continue stress ulcer and DVT prophylaxis. Job ID: [id number]
--- NOTE | 2019-04-03 07:46 | PRG ---
DATE OF SERVICE: 04/02/2019 SUBJECTIVE: The patient feels well. No complaints. No pain at rest. Able to transfer to the bed from the wheelchair, but has pain with this and requires standby assistance. OBJECTIVE: VITAL SIGNS: Shows blood pressure is 167/77, temperature is 98, pulse 87, respirations 20, and O2 saturations 92% on room air. LUNGS: Clear. CARDIAC: Showed regular rhythm. ABDOMEN: Soft and nontender. SKIN/EXTREMITIES: Show no edema, clubbing, or cyanosis. NEUROLOGICAL: Shows no focal findings. ASSESSMENT: 1. Stable lumbar spinal stenosis with right lumbar radiculopathy. Awaiting neurosurgery next week. 2. Hypertension, fair control, slightly elevated today. We will continue to monitor. 3. Chronic kidney disease, stage 3, stable and in fact somewhat improved with GFR of 57 yesterday. PLAN: 1. Continue PT and OT. 2. Continue pain relief as needed. 3. Continue to monitor vital signs. Continue stress ulcer and DVT prophylaxis. Job ID: [id number]
--- NOTE | 2019-04-03 09:10 | PRG ---
DATE OF SERVICE: 04/03/2019 SUBJECTIVE: The patient feels well, very cheerful, ready for her surgery. She has gone to preop yesterday at [place] and is scheduled for April 09 and is hopeful to return to [facility] after surgery. She has no complaints at rest. OBJECTIVE: VITAL SIGNS: Temperature 97.9, pulse 88, respirations 21, O2 sats 91% on room air, blood pressure 127/62. LUNGS: Clear. CARDIAC: Regular rhythm. ABDOMEN: Soft and nontender. SKIN/EXTREMITIES: No edema. ASSESSMENT: 1. Lumbar spinal stenosis with right lumbar radiculopathy, stable with no improvement. Awaiting surgery on April 09. 2. Hypertension, controlled to goal. 3. Chronic kidney disease stage 3, improved slightly. PLAN: Continue PT, OT. Continue pain relief as needed. Await surgical therapy of lumbar radiculopathy next week. Job ID: [id number]
[2019-04-03] MEDS: HYDROcodone/Acetaminophen 5/325 mg Tablet PO PRN ×3 (09:27→20:02)
[2019-04-03] MEDS: Enoxaparin Sodium 30 MG/0.3 ML SYRINGE SC SCH (09:28)
[2019-04-03] MEDS: Polyethylene Glycol 3350 17 GM Packet PO SCH (09:28)
[2019-04-03] MEDS: Gabapentin 400 MG CAP PO SCH ×3 (09:28→20:01)
[2019-04-03] MEDS: Amlodipine 5 MG TAB PO SCH (20:01)
[2019-04-03] MEDS: Amitriptyline HCl 25 MG TAB PO SCH (20:02)
[2019-04-04] MEDS: HYDROcodone/Acetaminophen 5/325 mg Tablet PO PRN ×2 (09:08→18:14)
[2019-04-04] MEDS: Gabapentin 400 MG CAP PO SCH ×3 (09:09→20:18)
[2019-04-04] MEDS: Enoxaparin Sodium 30 MG/0.3 ML SYRINGE SC SCH (09:10)
[2019-04-04] MEDS: Polyethylene Glycol 3350 17 GM Packet PO SCH (09:10)
[2019-04-04] MEDS: Amitriptyline HCl 25 MG TAB PO SCH (20:18)
[2019-04-04] MEDS: Amlodipine 5 MG TAB PO SCH (20:18)
--- NOTE | 2019-04-05 08:18 | PRG ---
DATE OF SERVICE: 04/04/2019 SUBJECTIVE: The patient feels well, sitting up in the chair. She had a nice restful weekend and is ready for more therapy tomorrow, but particularly is awaiting surgery on the . She is having no pain in her leg as long as she is sitting or lying, but has pain on even transferring. OBJECTIVE: VITAL SIGNS: Shows temperature is 97.5, pulse 78, respirations 18, O2 sats 96% on room air, blood pressure 168/78. LUNGS: Clear. CARDIAC: Examination showed regular rhythm. ABDOMEN: Soft and nontender. SKIN/EXTREMITIES: Showed no edema, clubbing, cyanosis. ASSESSMENT: 1. Stable lumbar spinal stenosis with persistent right lumbar radiculopathy. Awaiting laminectomy on the . 2. Chronic kidney disease, stage 3, stable. 3. Hypertension, controlled to goal. 4. Deconditioning, improved slightly. PLAN: 1. Continue PT, OT in preparation for surgery. 2. Continue pain relief with unable to tolerate narcotics. 3. Continue to monitor vital signs closely with therapy. 4. Continue oral hydration and avoidance of nephrotoxic drugs and monitoring chronic kidney disease, stage 3. Job ID: [id number]
[2019-04-05] MEDS: Gabapentin 400 MG CAP PO SCH ×3 (08:36→20:08)
[2019-04-05] MEDS: Enoxaparin Sodium 30 MG/0.3 ML SYRINGE SC SCH (08:36)
[2019-04-05] MEDS: HYDROcodone/Acetaminophen 5/325 mg Tablet PO PRN ×2 (08:36→20:08)
[2019-04-05] MEDS: Polyethylene Glycol 3350 17 GM Packet PO SCH (08:36)
--- NOTE | 2019-04-05 08:56 | PRG ---
DATE OF SERVICE: 04/05/2019 SUBJECTIVE: The patient feels well with no complaints, sitting up, waiting for breakfast, waiting for surgery. She feels well at rest and is willing to start on therapy today although her leg still hurts when she exercises. OBJECTIVE: VITAL SIGNS: Her blood pressure is 168/78, temperature 97, pulse 78, respirations 18, O2 sats 96% on room air. LUNGS: Clear. CARDIAC: Examination showed regular rhythm. ABDOMEN: Soft and nontender. SKIN/EXTREMITIES: Showed no edema, clubbing, or cyanosis. ASSESSMENT: 1. Stable right lumbar radiculopathy, status post lumbar spinal stenosis. 2. Stable hypertension. 3. Chronic kidney disease, stage 3, stable. PLAN: 1. Continue to monitor vital signs closely this week as this appear to be slightly elevated today. 2. Continue PT and OT. 3. Continue pain relief as needed. 4. Await neurosurgery. Job ID: [id number]
[2019-04-05] MEDS: Amlodipine 5 MG TAB PO SCH (20:09)
[2019-04-05] MEDS: Amitriptyline HCl 25 MG TAB PO SCH (20:09)
[2019-04-06] MEDS: Enoxaparin Sodium 30 MG/0.3 ML SYRINGE SC SCH (08:18)
[2019-04-06] MEDS: Gabapentin 400 MG CAP PO SCH ×3 (08:18→20:10)
[2019-04-06] MEDS: HYDROcodone/Acetaminophen 5/325 mg Tablet PO PRN ×2 (08:19→20:11)
[2019-04-06] MEDS: Polyethylene Glycol 3350 17 GM Packet PO SCH (08:19)
[2019-04-06] MEDS: Amitriptyline HCl 25 MG TAB PO SCH (20:11)
[2019-04-06] MEDS: Amlodipine 5 MG TAB PO SCH (20:11)
[2019-04-07] MEDS: Enoxaparin Sodium 30 MG/0.3 ML SYRINGE SC SCH ×2 (10:10→10:17)
[2019-04-07] MEDS: Polyethylene Glycol 3350 17 GM Packet PO SCH (10:11)
[2019-04-07] MEDS: Gabapentin 400 MG CAP PO SCH ×3 (10:11→19:41)
[2019-04-07] MEDS: HYDROcodone/Acetaminophen 5/325 mg Tablet PO PRN ×2 (10:12→19:41)
--- NOTE | 2019-04-07 18:56 | PRG ---
DATE OF SERVICE: 04/06/2019 SUBJECTIVE: The patient feels well, is awaiting surgery and preop nurses are asking about holding off her Lovenox. OBJECTIVE: LUNGS: Clear. CARDIAC: Showed regular rhythm. ABDOMEN: Soft and nontender. SKIN AND EXTREMITIES: Displayed no edema, clubbing, or cyanosis. VITAL SIGNS: Temperature 97.7, pulse 82, respirations 18, O2 saturations 96% on room air, blood pressure is 143/74. ASSESSMENT: 1. Stable hypertension. 2. Stable chronic kidney disease, stage 3. 3. Persistent lumbar degenerative disk disease with right lumbar radiculopathy, awaiting surgery on April 09. Job ID: [id number]
[2019-04-07] MEDS: Amitriptyline HCl 25 MG TAB PO SCH (19:40)
[2019-04-07] MEDS: Amlodipine 5 MG TAB PO SCH (19:40)
--- NOTE | 2019-04-08 06:14 | PRG ---
DATE OF SERVICE: 04/07/2019 SUBJECTIVE: The patient feels well. No complaints at rest or shortness of breath or chest pain. Minimal back pain at rest with increased pain on ambulation and radiating to the leg. OBJECTIVE: VITAL SIGNS: Show temperature is 97, pulse 78, respirations 20, O2 sats 98% on room air, and blood pressure 140/77. LUNGS: Clear. CARDIAC: Examination showed regular rhythm. ABDOMEN: Soft and nontender. SKIN/EXTREMITIES: Display no edema, clubbing, or cyanosis. NEUROLOGICAL: Intact. MUSCULOSKELETAL: Tenderness to palpation of the right lower back at times. ASSESSMENT: 1. Hypertension, controlled to goal. 2. Chronic kidney disease, stage 3, stable. We will repeat labs in a.m. prior to surgery. 3. Lumbar spinal stenosis with right lumbar radiculopathy. Schedule for surgery on April 09 and we will discontinue Lovenox tonight and we will repeat labs in the a.m. Job ID: [id number]
[2019-04-08 06:41] LABS: ALT (SGPT) 14 U/L (8-55); AST (SGOT) 12 U/L (5-34); Albumin 3.4 g/dL (3.4-4.8); Alkaline Phosphatase 75 U/L (40-110); Anion Gap 13 mmol/L (10-20); BUN (Urea Nitrogen) 25 mg/dL (9.8-20.1); Bilirubin, Total 0.2 mg/dL (0.2-1.2); Calc. Creatinine Clearance 65 mL/min (70-130); Calcium 8.3 mg/dL (7.8-10.44); Carbon Dioxide 22 mmol/L (23-31); Chloride 108 mmol/L (98-107); Estimated GFR-MDRD 52; Globulin 2.5 g/dL (2.4-3.5); Glucose 99 mg/dL (83-110); Protein, Total 5.9 g/dL (6.0-8.3); Sodium 139 mmol/L (136-145)
[2019-04-08 06:55] LABS: Hemoglobin 8.9 g/dL (12.0-16.0); Mean Corpuscular HGB CONC 29.9 g/dL (32.0-36.0); Mean Corpuscular Volume 70.2 fL (78.0-98.0); Mean Platelet Volume 8.4 fL (7.4-10.4); Platelet Count 304 thou/uL (130-400); RBC Distribution Width 16.5 % (11.5-14.5); Red Blood Cell (RBC) Count 4.26 mill/uL (4.20-5.40)
[2019-04-08 07:00] LABS: Anisocytosis SLIGHT = 6-15 cells (100X) (0-5/hpf); Eosinophils 5 % (0-10); Hypochromia SLIGHT = 6-15 cells (100X) (0-5/hpf); Lymphocytes 37 % (21-51); MDiff Complete? YES; Microcytosis SLIGHT = 6-15 cells (100X) (0-5/hpf); Monocytes 6 % (0-10); Neutrophil 52 % (42-75); Platelet Morphology Comment Appears Adequate
[2019-04-08] MEDS: Gabapentin 400 MG CAP PO SCH ×3 (09:07→19:47)
[2019-04-08] MEDS: Polyethylene Glycol 3350 17 GM Packet PO SCH (09:07)
[2019-04-08] MEDS: HYDROcodone/Acetaminophen 5/325 mg Tablet PO PRN ×3 (09:09→19:48)
--- NOTE | 2019-04-08 17:45 | PRG ---
DATE OF SERVICE: 04/08/2019 SUBJECTIVE: The patient is in room, waiting to be transferred tomorrow, but apparently her surgery has been canceled for tomorrow for unknown reason and had been unable to speak to family or neurosurgeon, Dr. Chacon. The patient does not know at this time and daughter will tell the patient this afternoon, attempting to contact surgeon with no response and will continue. OBJECTIVE: VITAL SIGNS: Show blood pressure 140/77, O2 saturations 95% on room air, temperature 96.8. LUNGS: Clear. CARDIAC: Showed regular rhythm. ABDOMEN: Soft and nontender. ASSESSMENT: 1. Lumbar spinal stenosis with persistent right lumbar radiculopathy with inability to maintain ADLs. 2. Hypertension, controlled to goal. 3. Chronic kidney disease, stage 3, very stable. GFR 52 to 57. 4. Anemia of chronic disease, chronic kidney disease, very stable. PLAN: Await decision from Neurosurgery and may need to consult another neurosurgeon. Job ID: [id number]
[2019-04-08] MEDS: Amitriptyline HCl 25 MG TAB PO SCH (19:46)
[2019-04-08] MEDS: Amlodipine 5 MG TAB PO SCH (19:46)
[2019-04-09] MEDS: Gabapentin 400 MG CAP PO SCH ×3 (08:07→19:03)
[2019-04-09] MEDS: Enoxaparin Sodium 30 MG/0.3 ML SYRINGE SC SCH (08:08)
[2019-04-09] MEDS: Polyethylene Glycol 3350 17 GM Packet PO SCH (08:09)
[2019-04-09] MEDS: HYDROcodone/Acetaminophen 5/325 mg Tablet PO PRN ×3 (08:25→19:04)
[2019-04-09] MEDS: Amlodipine 5 MG TAB PO SCH (19:03)
[2019-04-09] MEDS: Amitriptyline HCl 25 MG TAB PO SCH (19:03)
[2019-04-09 22:20] LABS: Iron 16 ug/dL (50-170); Iron Binding Capacity, Total 365 mcg/dL (265-497)
[2019-04-10] MEDS: HYDROcodone/Acetaminophen 5/325 mg Tablet PO PRN ×2 (08:42→17:20)
[2019-04-10] MEDS: Polyethylene Glycol 3350 17 GM Packet PO SCH (08:42)
[2019-04-10] MEDS: Gabapentin 400 MG CAP PO SCH ×3 (08:42→20:38)
[2019-04-10] MEDS: Enoxaparin Sodium 30 MG/0.3 ML SYRINGE SC SCH (08:42)
[2019-04-10] MEDS ORDERED: Epoetin (ESRD) 10,000 UNITS/ML VIAL SC SCH (16:00)
--- NOTE | 2019-04-10 16:09 | PRG ---
DATE OF SERVICE: 04/10/2019 SUBJECTIVE: Ms. Medina is up in her chair and denies any complaints. She apparently was scheduled for surgery yesterday, but it was canceled possibly due to her anemia, but this has been her baseline. OBJECTIVE: VITAL SIGNS: She is afebrile. Heart rate 85, respirations 20, oxygen saturation 92% on room air, blood pressure 146/71. CARDIOVASCULAR: S1-S2 plus. RESPIRATORY: Normal vesicular breath sounds. ABDOMEN: Soft, nontender. Bowel sounds heard in all quadrants. EXTREMITIES: Without cyanosis or clubbing. IMPRESSION: 1. Anemia, chronic, stable. 2. Lumbar radiculopathy due to spinal stenosis. 3. Hypertension. 4. Chronic kidney disease stage 3. 5. Depression. 6. Deconditioning. PLAN: 1. Continue current medications. 2. Low-sodium renal diet. 3. DVT prophylaxis with PlexiPulse. 4. Decubitus precautions. 5. Stress ulcer prophylaxis. 6. Physical therapy. 7. Routine laboratory values. 8. Dr. Evans will decide on rescheduling surgery after discussing with Dr. Chacon. Job ID: [id number]
[2019-04-10] MEDS: Amlodipine 5 MG TAB PO SCH (20:38)
[2019-04-10] MEDS: Amitriptyline HCl 25 MG TAB PO SCH (20:38)
[2019-04-11] MEDS: Ferrous Gluconate 324 MG TAB PO SCH (09:05)
[2019-04-11] MEDS: Polyethylene Glycol 3350 17 GM Packet PO SCH (09:06)
[2019-04-11] MEDS: Enoxaparin Sodium 30 MG/0.3 ML SYRINGE SC SCH (09:06)
[2019-04-11] MEDS: Gabapentin 400 MG CAP PO SCH ×3 (09:06→20:54)
[2019-04-11] MEDS: Folic Acid 1 MG TAB PO SCH (09:06)
[2019-04-11] MEDS: HYDROcodone/Acetaminophen 5/325 mg Tablet PO PRN ×2 (09:07→20:55)
--- NOTE | 2019-04-11 10:04 | PRG ---
DATE OF SERVICE: 04/09/2019 SUBJECTIVE: The patient feels well but has been upset as her surgery has been delayed until the surgeon is satisfied with a workup for her anemia. I have discussed the case with Dr. Ramos, who feels that her anemia is that of chronic disease, but we will go ahead and order lab tests and possibly Procrit. OBJECTIVE: Her iron is low at 16 with a TIBC of 365 and a fairly normal ferritin of 10.89 and a low folic acid of 6.40 again barely low. Her stools have not been done as she did not have a stool yet. Her hemoglobin has remained stable in the last month at 8.9 with hematocrit 29, white count 6900, but does have a low MCV of 70. LUNGS: Clear. CARDIAC: Regular rhythm. ABDOMEN: Soft and nontender. BACK: Minimal tenderness. ASSESSMENT: Anemia, iron deficient, possibly of chronic disease with previous negative stool guaiacs and colonoscopy. We will repeat the stool guaiac. We will start on Procrit 38421 units subcu now and ferrous gluconate 324 daily and folic acid 1 mg daily, and we will repeat CBC next week, and hopefully if stool guaiac negative, we will suffice to have the surgery. Job ID: [id number]
--- NOTE | 2019-04-11 15:48 | PRG ---
DATE OF SERVICE: 04/11/2019 SUBJECTIVE: Ms. Medina is doing the same. Denies any complaints, up in her chair. No family at bedside. Discussed with nursing. OBJECTIVE: VITAL SIGNS: She is afebrile, heart rate 96, respirations 18, oxygen saturation 95% on room air, blood pressure 161/73. CARDIOVASCULAR SYSTEM: S1 and S2 plus. RESPIRATORY SYSTEM: Normal vesicular breath sounds. ABDOMEN: Soft, nontender. Bowel sounds heard in all quadrants. EXTREMITIES: Without cyanosis or clubbing. IMPRESSION: 1. Lumbar spinal stenosis with radiculopathy. 2. Anemia, chronic. 3. Hypertension. 4. Chronic kidney disease, stage 3. 5. Deconditioning. PLAN: 1. Continue current medications. 2. Low-sodium renal diet. 3. DVT prophylaxis with PlexiPulse. 4. Decubitus precautions. 5. Stress ulcer prophylaxis. 6. Monitor blood counts. 7. Dr. Nathan sharp [facility]. Job ID: [id number]
[2019-04-11] MEDS: Amlodipine 5 MG TAB PO SCH (20:54)
[2019-04-11] MEDS: Amitriptyline HCl 25 MG TAB PO SCH (20:55)
[2019-04-12] MEDS: Polyethylene Glycol 3350 17 GM Packet PO SCH (08:22)
[2019-04-12] MEDS: Gabapentin 400 MG CAP PO SCH ×3 (08:23→20:40)
[2019-04-12] MEDS: Folic Acid 1 MG TAB PO SCH (08:23)
[2019-04-12] MEDS: HYDROcodone/Acetaminophen 5/325 mg Tablet PO PRN ×2 (08:23→20:39)
[2019-04-12] MEDS: Ferrous Gluconate 324 MG TAB PO SCH (08:23)
[2019-04-12] MEDS: Enoxaparin Sodium 30 MG/0.3 ML SYRINGE SC SCH (08:24)
[2019-04-12] MEDS: Amitriptyline HCl 25 MG TAB PO SCH (20:40)
[2019-04-12] MEDS: Amlodipine 5 MG TAB PO SCH (20:40)
[2019-04-13 05:43] VITALS: BMI 36.2
[2019-04-13] MEDS ORDERED: Sodium Chloride 0.9% 40 ML ONE (07:59)
[2019-04-13] MEDS: HYDROcodone/Acetaminophen 5/325 mg Tablet PO PRN ×3 (08:11→20:07)
[2019-04-13] MEDS: Enoxaparin Sodium 30 MG/0.3 ML SYRINGE SC SCH (08:11)
[2019-04-13] MEDS: Ferrous Gluconate 324 MG TAB PO SCH (08:11)
[2019-04-13] MEDS: Gabapentin 400 MG CAP PO SCH ×3 (08:11→20:05)
[2019-04-13] MEDS: Polyethylene Glycol 3350 17 GM Packet PO SCH (08:12)
[2019-04-13] MEDS: Folic Acid 1 MG TAB PO SCH (08:12)
--- NOTE | 2019-04-13 09:11 | PRG ---
DATE OF SERVICE: 04/12/2019 SUBJECTIVE: The patient feels well. No complaints. Awaiting plans for surgery as she still has pain on ambulation, but not at rest. OBJECTIVE: VITAL SIGNS: Shows her blood pressure is 156/73, temperature is 98, pulse 100, respirations 20, O2 sats 95% on room air. LABORATORY DATA: Laboratory show stool guaiac is negative. Folate is low at 6.4, has been started on folic acid, iron is low at 16, iron binding capacity is elevated at 365. Ferritin level is normal at 10.89. Reticulocyte count is normal. ASSESSMENT: 1. Anemia of chronic disease. No evidence of bleeding. Has been started on folic acid and iron supplementation and be given a dose of Procrit 10,000 units. 2. Lumbar spinal stenosis with recurrent right lumbar radiculopathy. Awaiting surgical approval. 3. Hypertension, controlled to goal. 4. Chronic kidney disease, stage 3, stable. PLAN: 1. Continue PT, OT. 2. Consider blood transfusion tomorrow. 3. Continue to monitor renal function closely. Job ID: [id number]
--- NOTE | 2019-04-13 09:13 | PRG ---
DATE OF SERVICE: 04/13/2019 SUBJECTIVE: The patient feels well, and asking when her surgery can be done. She is being prepared for blood transfusions today of 1 unit and then will repeat lab and consult with surgeon. OBJECTIVE: VITAL SIGNS: Her blood pressure is 156/73, pulse 100, O2 saturations 95% on room air. LUNGS: Clear. CARDIAC: Regular rhythm. ABDOMEN: Soft and nontender. SKIN AND EXTREMITIES: No edema. ASSESSMENT: 1. Lumbar spinal stenosis with right lumbar radiculopathy. 2. Anemia of chronic disease status post Procrit and institution of ferrous sulfate and folic acid, but we will give 1 unit of packed cells today. 3. Chronic kidney disease, stage 3. We will repeat labs tomorrow. Job ID: [id number]
[2019-04-13] MEDS: Amlodipine 5 MG TAB PO SCH (20:04)
[2019-04-13] MEDS: Amitriptyline HCl 25 MG TAB PO SCH (20:04)
[2019-04-14 07:09] LABS: ALT (SGPT) 16 U/L (8-55); AST (SGOT) 12 U/L (5-34); Albumin 3.8 g/dL (3.4-4.8); Alkaline Phosphatase 80 U/L (40-110); Anion Gap 14 mmol/L (10-20); BUN (Urea Nitrogen) 24 mg/dL (9.8-20.1); Bilirubin, Total 0.3 mg/dL (0.2-1.2); Calc. Creatinine Clearance 72 mL/min (70-130); Calcium 8.8 mg/dL (7.8-10.44); Carbon Dioxide 21 mmol/L (23-31); Chloride 111 mmol/L (98-107); Estimated GFR-MDRD 58; Globulin 2.8 g/dL (2.4-3.5); Glucose 119 mg/dL (83-110); Potassium 3.7 mmol/L (3.5-5.1); Protein, Total 6.6 g/dL (6.0-8.3); Sodium 142 mmol/L (136-145)
[2019-04-14] MEDS: Ferrous Gluconate 324 MG TAB PO SCH (08:25)
[2019-04-14] MEDS: Enoxaparin Sodium 30 MG/0.3 ML SYRINGE SC SCH (08:26)
[2019-04-14] MEDS: Gabapentin 400 MG CAP PO SCH ×3 (08:26→19:34)
[2019-04-14] MEDS: Polyethylene Glycol 3350 17 GM Packet PO SCH (08:26)
[2019-04-14] MEDS: Folic Acid 1 MG TAB PO SCH (08:26)
[2019-04-14] MEDS: HYDROcodone/Acetaminophen 5/325 mg Tablet PO PRN ×3 (08:26→19:35)
[2019-04-14 18:33] LABS: #Basophils 0.1 thou/uL (0.0-0.2); #Eosinphils 0.2 thou/uL (0.0-0.7); #Lymphocytes 1.7 thou/uL (1.20-3.40); #Monocytes 0.5 thou/uL (0.11-0.59); #Neutrophils 4.2 thou/uL (1.40-6.50); %Basophils 0.8 % (0.0-1.0); %Eosinophils 3.5 % (0.0-10.0); %Lymphocytes 25.2 % (21.0-51.0); %Monocytes 6.8 % (0.0-10.0); %Neutrophils 63.6 % (42.0-75.0); Hemoglobin 10.3 g/dL (12.0-16.0); Mean Corpuscular HGB CONC 29.3 g/dL (32.0-36.0); Mean Corpuscular Hemoglobin 20.9 pg (27.0-31.0); Mean Corpuscular Volume 71.3 fL (78.0-98.0); Mean Platelet Volume 8.3 fL (7.4-10.4); Platelet Count 366 thou/uL (130-400); RBC Distribution Width 16.9 % (11.5-14.5); Red Blood Cell (RBC) Count 4.96 mill/uL (4.20-5.40); White Blood Cell (WBC) Count 6.6 thou/uL (4.8-10.8)
[2019-04-14] MEDS: Amlodipine 5 MG TAB PO SCH (19:34)
[2019-04-14] MEDS: Amitriptyline HCl 25 MG TAB PO SCH (19:34)
[2019-04-15 08:12] LABS: Methylmalonic Acid 906 nmol/L (0-378)
--- NOTE | 2019-04-15 08:23 | PRG ---
DATE OF SERVICE: 04/14/2019 SUBJECTIVE: The patient is in visiting room with her daughter and son-in-law and advisor of course, that have been unable to contact Dr. Chacon to explain results of workup and we will attempt tomorrow as her workup has shown anemia of chronic disease and her response to Procrit therapy. The patient is having increasing weakness in her leg and some involuntary movements when she attempts to move her leg with pain on any movement in the bed. LABORATORY DATA: Laboratories have shown her hemoglobin is up to 10.3 after Procrit. White count 6600. OBJECTIVE: VITAL SIGNS: Show blood pressure of 155/72, temperature 97.9, pulse 81, respirations 20, O2 sats 92% on room air. LUNGS: Clear. CARDIAC: Examination shows regular rhythm. EXTREMITIES: Right leg shows pain on any flexion of the leg and on movement, the leg does appear to have poor control. ASSESSMENT: 1. Worsening right lumbar radiculopathy. 2. Improved anemia after Procrit injection up to 10.3, consistent with anemia of chronic disease. 3. Chronic kidney disease, stage 3 stable with hemoglobin down and almost chronic kidney disease stage 2. 4. Hypertension, controlled to goal. PLAN: 1. Attempt to contact Dr. Chacon again tomorrow. If unable to contact Dr. Chacon, we will advise the family that we will consult Neurosurgery at [facility]. 2. Advised the family that the patient will require being discharged home, if unable to transfer to acute hospital for surgery. Job ID: [id number]
--- NOTE | 2019-04-15 08:47 | PRG ---
DATE OF SERVICE: 04/14/2019 SUBJECTIVE: The patient feels well, ambulating in the arreaga, physical therapy. Good control of her blood pressure with no headaches, dizziness, or chest pain. Tolerating vancomycin well. OBJECTIVE: VITAL SIGNS: Temperature is 97.1, pulse 59, respirations 18, O2 saturation 95% on room air, blood pressure is 138/63. LUNGS: Clear. CARDIAC: Shows regular rhythm. ABDOMEN: Soft and nontender. SKIN/EXTREMITIES: Show no edema. LABORATORY DATA: Show vancomycin level is therapeutic at 20.7. Review of all records shows that she started on her vancomycin on March 13, therefore, should be finished with her antibiotics on April 23, and we will, therefore, plan on discharge at that time. ASSESSMENT: 1. 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 2. Stable hypertension. 3. Improving deconditioning. 4. Stable dementia. PLAN: 1. Finish vancomycin on April 23. Discuss with family need for disposition at that time. 2. Continue PT and OT. 3. CBC and comprehensive metabolic panel in the a.m. Job ID: [id number]
[2019-04-15] MEDS: Gabapentin 400 MG CAP PO SCH ×3 (09:17→20:52)
[2019-04-15] MEDS: Folic Acid 1 MG TAB PO SCH (09:17)
[2019-04-15] MEDS: Ferrous Gluconate 324 MG TAB PO SCH (09:17)
[2019-04-15] MEDS: Enoxaparin Sodium 30 MG/0.3 ML SYRINGE SC SCH (09:17)
[2019-04-15] MEDS: HYDROcodone/Acetaminophen 5/325 mg Tablet PO PRN ×3 (09:18→20:52)
[2019-04-15] MEDS: Polyethylene Glycol 3350 17 GM Packet PO SCH (09:18)
--- NOTE | 2019-04-15 18:58 | PRG ---
DATE OF SERVICE: 04/15/2019 SUBJECTIVE: The patient is sitting in the chair. Awaiting discharge tomorrow as her surgery has been scheduled, but not until May 07. She is unable to walk or maintain activities of daily living, and daughter is going home to stay with her on family leave. She is requiring a wheelchair as she is unable to ambulate with a walker. She is requiring assistance at home. She is unable to transfer without assistance because of significant pain. She has no shortness of breath, chest pain, or headache. Her vital signs have stabilized. OBJECTIVE: VITAL SIGNS: Blood pressure is 148/68, O2 sats 97%, temperature is 97.3, pulse 77. LUNGS: Clear. CARDIAC: Regular rhythm. ABDOMEN: Soft and nontender. SKIN/EXTREMITIES: No edema, clubbing, or cyanosis. NEUROLOGICAL: Weakness and pain in the right leg on any movement. ASSESSMENT: 1. Lumbar spinal stenosis with right lumbar radiculopathy with increasing weakness and numbness. 2. Anemia of chronic disease, improved with Procrit to a hemoglobin of 10.3, hematocrit 35, white count 6600. 3. Chronic kidney disease, stage 3, improving. 4. Hypertension, controlled to goal. PLAN: Discharge in a.m. with a care of her daughter to follow up with Dr. Chacon as an outpatient and on [facility]. Job ID: [id number]
[2019-04-15] MEDS: Amitriptyline HCl 25 MG TAB PO SCH (20:52)
[2019-04-15] MEDS: Amlodipine 5 MG TAB PO SCH (20:52)
[2019-04-16] MEDS: Enoxaparin Sodium 30 MG/0.3 ML SYRINGE SC SCH (08:20)
[2019-04-16] MEDS: HYDROcodone/Acetaminophen 5/325 mg Tablet PO PRN (08:20)
[2019-04-16] MEDS: Ferrous Gluconate 324 MG TAB PO SCH (08:22)
[2019-04-16] MEDS: Folic Acid 1 MG TAB PO SCH (08:22)
[2019-04-16] MEDS: Gabapentin 400 MG CAP PO SCH ×2 (08:22→16:39)
[2019-04-16] MEDS: Polyethylene Glycol 3350 17 GM Packet PO SCH (08:22)
[2019-04-16 08:57] VITALS: TEMP 98.4
[2019-04-16 13:17] VITALS: BP 145/75
== END 2019-04-16 16:45 | disposition home or self-care (01) | DRG 552 ==
LOC: NAV ACUTE 12:51
PROVIDERS: ADMIT Internal Medicine; ATTEND Internal Medicine
DX: M48.061 Spinal stenosis, lumbar region without neurogenic claudication (principal); I13.0 Hypertensive heart and chronic kidney disease with heart failure and stage 1 through stage 4 chronic kidney disease, or unspecified chronic kidney disease; I50.32 Chronic diastolic (congestive) heart failure; K21.9 Gastro-esophageal reflux disease without esophagitis; F32.9 Major depressive disorder, single episode, unspecified; Z90.710 Acquired absence of both cervix and uterus; Z98.890 Other specified postprocedural states; F41.9 Anxiety disorder, unspecified; M53.2X6 Spinal instabilities, lumbar region; D63.1 Anemia in chronic kidney disease; M51.16 Intervertebral disc disorders with radiculopathy, lumbar region; N18.3 Chronic kidney disease, stage 3 (moderate); D50.9 Iron deficiency anemia, unspecified
CPT/HCPCS: 36415; 80053; 82274; 82728; 82746; 83540; 83550; 83921; 85025; 85046; 86850; 86870; 86900; 86901; J1650; Q4081

== ENCOUNTER 2019-06-25 14:53 | Inpatient (IN) | payer MEDICARE ==
[2019-06-25 16:26] VITALS: BMI 37.1
[2019-06-25] MEDS ORDERED: Mag-Al Plus 1200 MG/1200 MG/120 MG/30 ML UDCUP PO PRN (17:03)
[2019-06-25] MEDS ORDERED: Acetaminophen 500 MG TAB PO PRN (17:03)
[2019-06-25] MEDS ORDERED: traMADol HCl 50 MG TAB PO PRN (17:03)
[2019-06-25] MEDS: Apixaban 5 MG TAB PO SCH (20:20)
[2019-06-25] MEDS: Gabapentin 400 MG CAP PO SCH (20:20)
[2019-06-25] MEDS: Metoprolol Tartrate 50 MG TAB PO SCH (20:21)
[2019-06-25] MEDS: cloNIDine 0.1 MG TAB PO SCH (20:21)
[2019-06-26 05:52] LABS: ALT (SGPT) 9 U/L (8-55); AST (SGOT) 12 U/L (5-34); Albumin 3.4 g/dL (3.4-4.8); Alkaline Phosphatase 77 U/L (40-110); Anion Gap 14 mmol/L (10-20); BUN (Urea Nitrogen) 28 mg/dL (9.8-20.1); Bilirubin, Total 0.4 mg/dL (0.2-1.2); Calc. Creatinine Clearance 54 mL/min (70-130); Calcium 8.9 mg/dL (7.8-10.44); Carbon Dioxide 25 mmol/L (23-31); Chloride 104 mmol/L (98-107); Estimated GFR-MDRD 48; Glucose 131 mg/dL (83-110); Potassium 3.7 mmol/L (3.5-5.1); Protein, Total 6.4 g/dL (6.0-8.3); Sodium 139 mmol/L (136-145)
[2019-06-26 06:14] LABS: Band 11 % (5-11); Eosinophils 4 % (0-10); Hemoglobin 11.4 g/dL (12.0-16.0); Large Platelets SLIGHT; Lymphocytes 21 % (21-51); MDiff Complete? YES; Mean Corpuscular HGB CONC 29.4 g/dL (32.0-36.0); Mean Corpuscular Hemoglobin 23.6 pg (27.0-31.0); Mean Corpuscular Volume 80.4 fL (78.0-98.0); Mean Platelet Volume 13.2 fL (7.4-10.4); Monocytes 3 % (0-10); Neutrophil 58 % (42-75); Platelet Count 247 thou/uL (130-400); Platelet Morphology Comment Appears Adequate; RBC Distribution Width 18.4 % (11.5-14.5); RBC Morphology Normal; Reactive Lymphocytes 3 % (0-10); Red Blood Cell (RBC) Count 4.85 mill/uL (4.20-5.40); White Blood Cell (WBC) Count 7.8 thou/uL (4.8-10.8)
[2019-06-26] MEDS: Ferrous Gluconate 324 MG TAB PO SCH (08:51)
[2019-06-26] MEDS: Potassium Chloride 20 MEQ TAB PO SCH (08:51)
[2019-06-26] MEDS: Magnesium Oxide 400 MG TAB PO SCH (08:51)
[2019-06-26] MEDS: Amiodarone 200 MG TAB PO SCH (08:51)
[2019-06-26] MEDS: Metoprolol Tartrate 50 MG TAB PO SCH ×2 (08:52→20:14)
[2019-06-26] MEDS: Furosemide 40 MG TAB PO SCH (08:52)
[2019-06-26] MEDS: Folic Acid 1 MG TAB PO SCH (08:52)
[2019-06-26] MEDS: Gabapentin 400 MG CAP PO SCH ×3 (08:52→20:14)
[2019-06-26] MEDS: Amlodipine 5 MG TAB PO SCH (08:52)
[2019-06-26] MEDS: Apixaban 5 MG TAB PO SCH ×2 (08:52→20:15)
[2019-06-26] MEDS: cloNIDine 0.1 MG TAB PO SCH ×2 (08:53→20:15)
[2019-06-26] MEDS: Lisinopril 10 MG TAB PO SCH (08:53)
--- NOTE | 2019-06-26 09:01 | HP ---
HISTORY OF PRESENT ILLNESS: The patient is a very pleasant 83-year-old white female, well known to myself, with a long history of hypertension as well as chronic kidney disease, stage 3, and significant lumbar spinal stenosis, status post distant lumbar laminectomy, who has had a recent lumbar laminectomy for severe right lumbar radiculopathy. She had complications during that hospitalization of atrial fibrillation with rapid ventricular response requiring rate control and anticoagulation. She also developed some mild delirium postoperatively and did develop a right lower extremity DVT and had inferior vena cava filter placed. She was admitted to the rehab facility again, improved greatly, had her atrial fibrillation controlled, was ambulating, was discharged home and then apparently was only home for 2 days, began to have shortness of breath, weakness and fell and was admitted to [facility] in [place], where she was found to have diastolic heart failure and was admitted for diuresis. She improved greatly and was felt to be stable to be transferred back to the [facility], [place] for continued PT and OT. At this time, the patient is alert and oriented and in no distress. PAST MEDICAL HISTORY: As mentioned above is positive for hypertension; depression; gastroesophageal reflux; chronic kidney disease, stage 3; atrial fibrillation with rate control and anticoagulation; DVT, status post IVC filter. PAST SURGICAL HISTORY: Positive also for appendectomy, hysterectomy, tonsillectomy, bilateral knee surgeries, and a . She did have an ERCP with sphincterotomy for gallstone choledocholithiasis. MEDICATIONS: At this time include, 1. Amiodarone 200 mg daily. 2. Amlodipine 10 daily. 3. Apixaban 5 twice daily. 4. Clonidine 0.1 twice daily. 5. Furosemide 40 daily. 6. Gabapentin 400 three times daily. 7. Lisinopril 10 daily. 8. Magnesium oxide 400 daily. 9. Metoprolol 50 twice daily. 10. Pantoprazole 40 twice daily. 11. KCl 20 mEq daily. ALLERGIES: SHE IS ALLERGIC TO PENICILLIN, PROPOFOL, AND BACTRIM. SOCIAL HISTORY: She lives with her daughter. She is a nonsmoker and nondrinker. REVIEW OF SYSTEMS: HEENT: She denies headaches, dizziness, change in vision or hearing, hoarseness, or dysphagia. PULMONARY: She denies cough, sputum production, pneumonia, asthma, or tuberculosis. CARDIOVASCULAR: She denies chest pain, orthopnea, paroxysmal nocturnal dyspnea, or edema. GASTROINTESTINAL: She denies nausea, vomiting, diarrhea, constipation, or abdominal pain. GENITOURINARY: She denies dysuria, hematuria, or nocturia. MUSCULOSKELETAL: She has some minimal pain in her back, but not radiating into her leg. NEUROLOGIC: She does have persistent weakness in her legs. PHYSICAL EXAMINATION: GENERAL: The patient is an elderly white female, sitting in a chair, eating supper. No acute distress. Oriented x3 and cooperative. VITAL SIGNS: Showed her to have blood pressure of 141/77, temperature 99, pulse 80, respirations 18, O2 saturations 94% on room air. HEENT: Pupils are equal, round, and reactive to light and accommodation. Sclerae are anicteric. Conjunctivae are pale. Oral mucous membranes are well hydrated. NECK: Supple. There are no nodes or masses. JVP is not elevated. LUNGS: Clear. CARDIAC: Shows regular rhythm. ABDOMEN: Soft and nontender. SKIN/EXTREMITIES: Display no edema, clubbing, or cyanosis. NEUROLOGIC: Shows some weakness in the legs, but no focal findings. ASSESSMENT: 1. Deconditioning, status post recent admission for decompensation of diastolic heart failure. 2. Diastolic heart failure, stabilized on antihypertensives and diuretics. 3. Atrial fibrillation with rate control and anticoagulation. 4. Lumbar laminectomy for lumbar spinal stenosis, healing well with some mild persistent pain in the legs and falling. PLAN: 1. Start PT and OT. 2. Monitor vital signs closely with therapy. 3. Continue rate control and anticoagulation of atrial fibrillation. 4. Obtain EKG. 5. Continue to monitor blood pressure closely on prehospitalization medications. 6. Obtain CBC and comprehensive metabolic profile in the a.m. Job ID: [id number]
[2019-06-27 04:11] LABS: Hemoglobin 12.7 g/dL (12.0-16.0); Mean Corpuscular HGB CONC 28.5 g/dL (32.0-36.0); Mean Corpuscular Hemoglobin 23.4 pg (27.0-31.0); Mean Corpuscular Volume 82.1 fL (78.0-98.0); Platelet Count 319 thou/uL (130-400); RBC Distribution Width 18.4 % (11.5-14.5); Red Blood Cell (RBC) Count 5.46 mill/uL (4.20-5.40); White Blood Cell (WBC) Count 10.6 thou/uL (4.8-10.8)
[2019-06-27 04:16] LABS: #Basophils 0.1 thou/uL (0.0-0.2); #Eosinphils 0.2 thou/uL (0.0-0.7); #Lymphocytes 0.5 thou/uL (1.20-3.40); #Monocytes 0.4 thou/uL (0.11-0.59); #Neutrophils 9.4 thou/uL (1.40-6.50); %Basophils 0.6 % (0.0-1.0); %Eosinophils 1.7 % (0.0-10.0); %Monocytes 4.2 % (0.0-10.0); %Neutrophils 88.6 % (42.0-75.0); Anisocytosis SLIGHT = 6-15 cells (100X) (0-5/hpf); Hypochromia SLIGHT = 6-15 cells (100X) (0-5/hpf); MDiff Complete? YES; Platelet Morphology Comment Appears Adequate; Poikilocytosis SLIGHT = 6-15 cells (100X) (0-5/hpf)
[2019-06-27 04:19] LABS: ALT (SGPT) 14 U/L (8-55); AST (SGOT) 16 U/L (5-34); Albumin 3.7 g/dL (3.4-4.8); Alkaline Phosphatase 93 U/L (40-110); Anion Gap 17 mmol/L (10-20); BUN (Urea Nitrogen) 40 mg/dL (9.8-20.1); Bilirubin, Total 0.4 mg/dL (0.2-1.2); Calc. Creatinine Clearance 39 mL/min (70-130); Calcium 9.2 mg/dL (7.8-10.44); Carbon Dioxide 23 mmol/L (23-31); Chloride 105 mmol/L (98-107); Estimated GFR-MDRD 33; Globulin 3.5 g/dL (2.4-3.5); Glucose 155 mg/dL (83-110); Potassium 4.5 mmol/L (3.5-5.1); Protein, Total 7.2 g/dL (6.0-8.3); Sodium 140 mmol/L (136-145)
[2019-06-27] MEDS ORDERED: Sodium Chloride 0.9% 1,000 ML IV SCH (04:30)
[2019-06-27 05:00] LABS: Base Excess-Venous 1.2 mmol/L (-2.0 to 3.0); Bicarbonate (HCO3v) 26.1 mmol/L (22.0-28.0); CO2 Tension (PvCO2) 41.5 mmHg (40.0-50.0); Calcium, Ionized 1.08 mmol/L (See Comments:); Chloride 104 mmol/L (98-107); Hemoglobin - Calc 14.4 g/dL (12.0-16.0); Potassium 4.4 mmol/L (3.5-5.1); Sodium 141 mmol/L (138-145); T. Carbon Dioxide 27.4 mmol/L (22.0-28.0); vO2 Saturation-calc 98.7 % (60.0-85.0)
[2019-06-27] MEDS ORDERED: Cefepime 1 GM in Sodium Chloride 0.9% 100 ML IVPB SCH (08:00)
--- NOTE | 2019-06-27 08:17 | RAD ---
RADIOGRAPH CHEST 1 VIEW: DATE: 06/27/2019 TIME: 3:11 AM HISTORY: 83-year-old female with cough, dyspnea, and hypoxemia COMPARISON: 05/09/2019 FINDINGS: New central suprahilar right upper lobe consolidation. Diffuse pulmonary venous engorgement. Cardiome joe. Moderate size hiatal hernia. No pneumothorax. IMPRESSION: 1. New right central suprahilar alveolar infiltrate: Evidence for right upper lobe pneumonia. 2. Cardiomegaly and pulmonary venous congestion. 3. Moderate size hiatal hernia.
[2019-06-27 08:24] VITALS: BP 120/70; TEMP 100.3
--- NOTE | 2019-06-27 08:26 | PRG ---
DATE OF SERVICE: 06/26/2019 SUBJECTIVE: The patient is sitting up in chair, eating her supper, having no complaints other than recurrent pain in her back, which the therapist found during therapy. She states however that she was able to do therapy and will be doing some exercises with the therapist. OBJECTIVE: VITAL SIGNS: Show temperature 97.9, pulse 71, respirations 20, O2 sats 96% on room air, and blood pressure 120/65. HEENT: Pupils are equal, round, and reactive to light and accommodations. LUNGS: Clear. CARDIAC: Shows regular rhythm. ABDOMEN: Soft and nontender. SKIN/EXTREMITIES: Display no edema, clubbing, or cyanosis. ASSESSMENT: 1. Resolving exacerbation diastolic heart failure. 2. Persistent radiculopathy, status post laminectomy for spinal stenosis. 3. Hypertension, controlled to goal. 4. History of recent onset of atrial fibrillation with rapid ventricular response, converted to sinus rhythm and maintained on amiodarone. PLAN: 1. Continue PT/OT. 2. Continue to monitor vital signs closely with therapy. 3. Continue stress ulcer prophylaxis. 4. Continue rate control and full-dose anticoagulation of atrial fibrillation/flutter. Job ID: [id number]
[2019-06-27] MEDS: Magnesium Oxide 400 MG TAB PO SCH (08:30)
[2019-06-27] MEDS: Metoprolol Tartrate 50 MG TAB PO SCH (08:30)
[2019-06-27] MEDS: Gabapentin 400 MG CAP PO SCH (08:30)
[2019-06-27] MEDS: Folic Acid 1 MG TAB PO SCH (08:30)
[2019-06-27] MEDS: Lisinopril 10 MG TAB PO SCH (08:30)
[2019-06-27] MEDS: Furosemide 40 MG TAB PO SCH (08:30)
[2019-06-27] MEDS: Ferrous Gluconate 324 MG TAB PO SCH (08:30)
[2019-06-27] MEDS: Amlodipine 5 MG TAB PO SCH (08:30)
[2019-06-27] MEDS: Apixaban 5 MG TAB PO SCH (08:30)
[2019-06-27] MEDS: Amiodarone 200 MG TAB PO SCH (08:30)
[2019-06-27] MEDS: Potassium Chloride 20 MEQ TAB PO SCH (08:30)
[2019-06-27] MEDS: cloNIDine 0.1 MG TAB PO SCH (08:30)
[2019-06-27] MEDS ORDERED: Vancomycin HCl 1 GM in Sodium Chloride 0.9% 250 ML 250 ML IVPB SCH (09:00)
[2019-06-27] MEDS ORDERED: Haloperidol Lactate 5 MG/ML VIAL ONE (09:30)
[2019-06-27] MEDS ORDERED: Haloperidol Lactate 5 MG/ML VIAL IM SCH (09:45)
[2019-06-27 11:12] LABS: Bilirubin Negative (Negative); Blood, Urine Moderate (Negative); Clarity Slightly Cloudy (Clear); Glucose, Urine (Dipstick) Negative (Negative); Leukocyte Large (Negative); Nitrite Negative (Negative); Protein, Urine (Dipstick) 100 mg/dL (Neg-Trace); Urobilinogen 0.2 mg/dL (Less than 2)
[2019-06-27 11:52] LABS: Bacteria/HPF 3+ HPF (None Seen); RBC/HPF 0-3 HPF (0-3); Squamous Epithelial 0-3 HPF (0-3); WBC/HPF Greater Than 50 HPF (0-3)
[2019-06-28 09:57] LABS: SARS-CoV-2 MS2 Positive; SARS-CoV-2 N Gene Negative; SARS-CoV-2 S Gene Negative; SARS-CoV-2 orf1ab Negative
== END 2019-06-27 11:25 | disposition short-term general hospital (02) | DRG 291 ==
LOC: NAV ACUTE 15:08
PROVIDERS: ADMIT Internal Medicine; ATTEND Internal Medicine
DX: I13.0 Hypertensive heart and chronic kidney disease with heart failure and stage 1 through stage 4 chronic kidney disease, or unspecified chronic kidney disease (principal); I50.33 Acute on chronic diastolic (congestive) heart failure; N18.3 Chronic kidney disease, stage 3 (moderate); I48.91 Unspecified atrial fibrillation; R41.0 Disorientation, unspecified; F32.9 Major depressive disorder, single episode, unspecified; K21.9 Gastro-esophageal reflux disease without esophagitis; M48.061 Spinal stenosis, lumbar region without neurogenic claudication; Z86.718 Personal history of other venous thrombosis and embolism; Z79.01 Long term (current) use of anticoagulants; Z90.710 Acquired absence of both cervix and uterus; Z90.49 Acquired absence of other specified parts of digestive tract; Z88.1 Allergy status to other antibiotic agents; Z88.0 Allergy status to penicillin; Z88.8 Allergy status to other drugs, medicaments and biological substances
CPT/HCPCS: 71045; 80053; 81001; 82330; 82803; 83605; 85025; 87040; 87077; 87086; 87186; 87635; 87804; J0692; J1630; J3490; U0003

== ENCOUNTER 2022-03-02 09:50 | Inpatient (IN) | payer MEDICARE ==
[2022-03-02] MEDS ORDERED: Acetaminophen 325 MG TAB PO PRN (11:49)
[2022-03-02] MEDS ORDERED: Senokot S 8.6-50 MG TAB PO PRN (11:56)
[2022-03-02] MEDS ORDERED: Bisacodyl 10 MG SUPP PR PRN (11:56)
[2022-03-02] MEDS ORDERED: Cepastat Lozenges 1 LOZ PO PRN (11:56)
[2022-03-02] MEDS ORDERED: Benzonatate 100 MG CAP PO PRN (11:56)
[2022-03-02] MEDS ORDERED: Bisacodyl 5 MG TAB PO PRN (11:56)
[2022-03-02 15:34] LABS: SARS-CoV-2 NAA Rapid Test DETECTED (NotDetected)
[2022-03-02] MEDS: Benzonatate 100 MG CAP PO SCH ×2 (15:52→20:18)
[2022-03-02] MEDS: hydrALAZINE 25 MG TAB PO SCH ×2 (15:52→20:18)
[2022-03-02] MEDS: Potassium Chloride 20 MEQ TAB PO SCH (16:48)
[2022-03-02] MEDS ORDERED: Lidocaine 4% Cream 5 GM TUBE w/ Tegaderm ONE (16:49)
[2022-03-02] MEDS ORDERED: Lidocaine 4% Topical Sol 50 ML BOT TOP PRN (17:04)
[2022-03-02] MEDS: Pramipexole Di-HCl 0.25 MG TAB PO SCH (20:18)
[2022-03-02] MEDS: Apixaban 2.5 MG TAB PO SCH (20:19)
[2022-03-02] MEDS: Metoprolol Tartrate 50 MG TAB PO SCH (20:19)
[2022-03-02] MEDS: Acetaminophen 500 MG TAB PO PRN (20:22)
[2022-03-02] MEDS ORDERED: Famotidine 20 MG TAB PO SCH (21:00)
[2022-03-03 06:51] LABS: ALT (SGPT) 170 U/L (8-55); AST (SGOT) 228 U/L (5-34); Albumin 3.2 g/dL (3.4-4.8); Alkaline Phosphatase 114 U/L (40-110); Anion Gap 15 mmol/L (10-20); BUN (Urea Nitrogen) 25 mg/dL (9.8-20.1); Bilirubin, Total 0.9 mg/dL (0.2-1.2); Calc. Creatinine Clearance 35 mL/min (70-130); Calcium 8.5 mg/dL (7.8-10.44); Carbon Dioxide 24 mmol/L (23-31); Chloride 103 mmol/L (98-107); Estimated GFR 36; Globulin 2.8 g/dL (2.4-3.5); Glucose 102 mg/dL (83-110); Magnesium 1.8 mg/dL (1.6-2.6); Potassium 3.7 mmol/L (3.5-5.1); Sodium 138 mmol/L (136-145)
[2022-03-03 07:07] LABS: Hemoglobin 16.7 g/dL (12.0-16.0); Mean Corpuscular HGB CONC 31.7 g/dL (32.0-36.0); Mean Corpuscular Hemoglobin 28.5 pg (27.0-31.0); Mean Corpuscular Volume 89.9 fl (78.0-98.0); Mean Platelet Volume 10.9 fL (7.4-10.4); Platelet Count 234 10x3/uL (130-400); RBC Distribution Width 14.7 % (11.5-14.5); Red Blood Cell (RBC) Count 5.86 mill/uL (4.20-5.40); White Blood Cell (WBC) Count 2.4 10x3/uL (4.8-10.8)
[2022-03-03 07:59] LABS: Large Platelets SLIGHT; Lymphocytes 13 % (21-51); MDiff Complete? YES; Monocytes 10 % (0-10); Neutrophil 77 % (42-75); Platelet Morphology Comment Appears Adequate
[2022-03-03] MEDS ORDERED: Potassium Chloride 20 MEQ TAB PO SCH (09:00)
[2022-03-03] MEDS: Benzonatate 100 MG CAP PO SCH ×3 (09:07→20:18)
[2022-03-03] MEDS: hydrALAZINE 25 MG TAB PO SCH ×3 (09:07→20:17)
[2022-03-03] MEDS: Magnesium Oxide 400 MG TAB PO SCH (09:07)
[2022-03-03] MEDS: Bumetanide 1 MG TAB PO SCH (09:07)
[2022-03-03] MEDS: Potassium Chloride 20 MEQ TAB PO SCH ×2 (09:07→17:49)
[2022-03-03] MEDS: Apixaban 2.5 MG TAB PO SCH ×2 (09:07→20:18)
[2022-03-03] MEDS: Multivitamin w/Zinc Stress 1 TAB PO SCH (09:08)
[2022-03-03] MEDS: Amiodarone 200 MG TAB PO SCH (09:08)
[2022-03-03] MEDS: Lisinopril 20 MG TAB PO SCH (09:08)
[2022-03-03] MEDS: Amlodipine 5 MG TAB PO SCH (09:08)
[2022-03-03] MEDS: Metoprolol Tartrate 50 MG TAB PO SCH ×2 (09:08→20:18)
[2022-03-03] MEDS: Pramipexole Di-HCl 0.25 MG TAB PO SCH ×2 (09:11→20:17)
[2022-03-03] MEDS: Fluticasone Propionate Nasal Spray 16 gm Bottle NASAL SCH (10:18)
[2022-03-03 10:52] LABS: Acetaminophen Less than 10.0 mcg/mL (10.0-30.0)
[2022-03-03 16:57] LABS: HBCM Index 0.08 S/CO (0-0.79); HBSAg Index 0.28 S/CO (0-0.99); Hep A IgM AB Non-Reactive (NonReactive); Hep A IgM S/CO 0.27 S/CO (0-0.79); Hep B Surf Ag Non-Reactive S/CO (NonReactive); Hep C IgG Ab Non-Reactive (NonReactive); Hep C Index 0.25 S/CO (0-0.79); Hepatitis B Core IgM Abs Non-Reactive (NonReactive)
[2022-03-03] MEDS ORDERED: Benzonatate 100 MG CAP ONE (17:36)
[2022-03-04 06:26] LABS: #Lymphocytes 0.6 thou/uL (1.20-3.40); #Monocytes 0.4 thou/uL (0.11-0.59); #Neutrophils 2.5 thou/uL (1.40-6.50); %Basophils 1.1 % (0.0-1.0); %Eosinophils 0.1 % (0.0-10.0); %Lymphocytes 17.7 % (21.0-51.0); %Monocytes 10.2 % (0.0-10.0); %Neutrophils 70.9 % (42.0-75.0); Hemoglobin 16.5 g/dL (12.0-16.0); Mean Corpuscular HGB CONC 31.9 g/dL (32.0-36.0); Mean Corpuscular Hemoglobin 28.5 pg (27.0-31.0); Mean Corpuscular Volume 89.3 fl (78.0-98.0); Mean Platelet Volume 10.5 fL (7.4-10.4); Platelet Count 210 10x3/uL (130-400); RBC Distribution Width 14.5 % (11.5-14.5); Red Blood Cell (RBC) Count 5.79 mill/uL (4.20-5.40); White Blood Cell (WBC) Count 3.5 10x3/uL (4.8-10.8)
[2022-03-04 06:35] LABS: ALT (SGPT) 182 U/L (8-55); AST (SGOT) 224 U/L (5-34); Albumin 2.9 g/dL (3.4-4.8); Alkaline Phosphatase 109 U/L (40-110); Anion Gap 14 mmol/L (10-20); BUN (Urea Nitrogen) 25 mg/dL (9.8-20.1); Bilirubin, Total 0.7 mg/dL (0.2-1.2); Calc. Creatinine Clearance 36 mL/min (70-130); Calcium 8.2 mg/dL (7.8-10.44); Carbon Dioxide 22 mmol/L (23-31); Chloride 105 mmol/L (98-107); Estimated GFR 37; Globulin 2.6 g/dL (2.4-3.5); Glucose 108 mg/dL (83-110); Magnesium 1.8 mg/dL (1.6-2.6); Potassium 3.8 mmol/L (3.5-5.1); Protein, Total 5.5 g/dL (5.8-8.1); Sodium 137 mmol/L (136-145)
[2022-03-04] MEDS: Bumetanide 1 MG TAB PO SCH (09:07)
[2022-03-04] MEDS: hydrALAZINE 25 MG TAB PO SCH ×3 (09:07→20:29)
[2022-03-04] MEDS: Multivitamin w/Zinc Stress 1 TAB PO SCH (09:07)
[2022-03-04] MEDS: Potassium Chloride 20 MEQ TAB PO SCH ×2 (09:08→16:15)
[2022-03-04] MEDS: Hydroxyurea 500 MG CAP PO SCH (09:08)
[2022-03-04] MEDS: Metoprolol Tartrate 50 MG TAB PO SCH ×2 (09:08→20:29)
[2022-03-04] MEDS: Magnesium Oxide 400 MG TAB PO SCH (09:08)
[2022-03-04] MEDS: Amiodarone 200 MG TAB PO SCH (09:08)
[2022-03-04] MEDS: Pramipexole Di-HCl 0.25 MG TAB PO SCH ×2 (09:09→20:28)
[2022-03-04] MEDS: Amlodipine 5 MG TAB PO SCH (09:10)
[2022-03-04] MEDS: Lisinopril 20 MG TAB PO SCH (09:11)
[2022-03-04] MEDS: Benzonatate 100 MG CAP PO SCH ×3 (09:11→20:28)
[2022-03-04] MEDS: Apixaban 2.5 MG TAB PO SCH ×2 (09:11→20:29)
[2022-03-04] MEDS: Fluticasone Propionate Nasal Spray 16 gm Bottle NASAL SCH (09:12)
[2022-03-05] MEDS: Bumetanide 1 MG TAB PO SCH (08:37)
[2022-03-05] MEDS: Pramipexole Di-HCl 0.25 MG TAB PO SCH ×2 (08:38→21:30)
[2022-03-05] MEDS: Metoprolol Tartrate 50 MG TAB PO SCH ×2 (08:38→21:31)
[2022-03-05] MEDS: Amiodarone 200 MG TAB PO SCH (08:38)
[2022-03-05] MEDS: Lisinopril 20 MG TAB PO SCH (08:38)
[2022-03-05] MEDS: hydrALAZINE 25 MG TAB PO SCH ×3 (08:39→21:31)
[2022-03-05] MEDS: Apixaban 2.5 MG TAB PO SCH ×2 (08:39→21:31)
[2022-03-05] MEDS: Potassium Chloride 20 MEQ TAB PO SCH ×2 (08:39→17:11)
[2022-03-05] MEDS: Amlodipine 5 MG TAB PO SCH (08:39)
[2022-03-05] MEDS: Benzonatate 100 MG CAP PO SCH ×3 (08:39→21:31)
[2022-03-05] MEDS: Fluticasone Propionate Nasal Spray 16 gm Bottle NASAL SCH (08:40)
[2022-03-05] MEDS: Magnesium Oxide 400 MG TAB PO SCH (08:40)
[2022-03-05] MEDS: Multivitamin w/Zinc Stress 1 TAB PO SCH (08:40)
[2022-03-06] MEDS: Potassium Chloride 20 MEQ TAB PO SCH ×2 (09:05→16:29)
[2022-03-06] MEDS: Pramipexole Di-HCl 0.25 MG TAB PO SCH ×2 (09:06→21:15)
[2022-03-06] MEDS: Apixaban 2.5 MG TAB PO SCH ×2 (09:06→21:15)
[2022-03-06] MEDS: Multivitamin w/Zinc Stress 1 TAB PO SCH (09:06)
[2022-03-06] MEDS: Benzonatate 100 MG CAP PO SCH ×3 (09:06→21:15)
[2022-03-06] MEDS: Bumetanide 1 MG TAB PO SCH (09:06)
[2022-03-06] MEDS: Magnesium Oxide 400 MG TAB PO SCH (09:09)
[2022-03-06] MEDS: Amlodipine 5 MG TAB PO SCH (09:18)
[2022-03-06] MEDS: Metoprolol Tartrate 50 MG TAB PO SCH ×2 (09:18→21:15)
[2022-03-06] MEDS: Amiodarone 200 MG TAB PO SCH (09:18)
[2022-03-06] MEDS: Lisinopril 20 MG TAB PO SCH (09:18)
[2022-03-06] MEDS: hydrALAZINE 25 MG TAB PO SCH ×3 (09:19→21:16)
[2022-03-06] MEDS: Fluticasone Propionate Nasal Spray 16 gm Bottle NASAL SCH (09:20)
[2022-03-06 09:49] LABS: #Lymphocytes 0.7 thou/uL (1.20-3.40); #Monocytes 0.4 thou/uL (0.11-0.59); #Neutrophils 4.2 thou/uL (1.40-6.50); %Basophils 0.3 % (0.0-1.0); %Eosinophils 0.3 % (0.0-10.0); %Lymphocytes 12.2 % (21.0-51.0); %Monocytes 8.2 % (0.0-10.0); %Neutrophils 79.1 % (42.0-75.0); Hemoglobin 15.7 g/dL (12.0-16.0); Mean Corpuscular HGB CONC 31.3 g/dL (32.0-36.0); Mean Corpuscular Hemoglobin 28.4 pg (27.0-31.0); Mean Corpuscular Volume 90.7 fl (78.0-98.0); Mean Platelet Volume 10.1 fL (7.4-10.4); Platelet Count 300 10x3/uL (130-400); RBC Distribution Width 14.8 % (11.5-14.5); Red Blood Cell (RBC) Count 5.52 mill/uL (4.20-5.40); White Blood Cell (WBC) Count 5.4 10x3/uL (4.8-10.8)
[2022-03-06 09:52] LABS: Anion Gap 13 mmol/L (10-20); BUN (Urea Nitrogen) 32 mg/dL (9.8-20.1); Calc. Creatinine Clearance 28 mL/min (70-130); Calcium 8.4 mg/dL (7.8-10.44); Chloride 107 mmol/L (98-107); Estimated GFR 28; Glucose 129 mg/dL (83-110); Sodium 141 mmol/L (136-145)
[2022-03-06 10:51] LABS: Carbon Dioxide 25 mmol/L (23-31)
[2022-03-06] MEDS ORDERED: Artificial Tear Sol 15 ML BOT EA EYE PRN (15:49)
[2022-03-06] MEDS ORDERED: Sodium Chloride 0.65% Nasal 44 ML BOT EA NARE PRN (15:49)
[2022-03-06] MEDS ORDERED: Loratadine 10 MG TAB PO PRN (16:03)
[2022-03-06] MEDS: guaiFENesin ER 600 MG TAB PO SCH (21:15)
[2022-03-07] MEDS: Chloraseptic Spray 180 ml Bottle PO PRN (04:44)
[2022-03-07] MEDS: Multivitamin w/Zinc Stress 1 TAB PO SCH (10:23)
[2022-03-07] MEDS: Apixaban 2.5 MG TAB PO SCH ×2 (10:23→21:47)
[2022-03-07] MEDS: Amiodarone 200 MG TAB PO SCH (10:23)
[2022-03-07] MEDS: Magnesium Oxide 400 MG TAB PO SCH (10:24)
[2022-03-07] MEDS: hydrALAZINE 25 MG TAB PO SCH ×3 (10:24→21:44)
[2022-03-07] MEDS: Hydroxyurea 500 MG CAP PO SCH (10:24)
[2022-03-07] MEDS: Benzonatate 100 MG CAP PO SCH ×3 (10:24→21:45)
[2022-03-07] MEDS: Metoprolol Tartrate 50 MG TAB PO SCH ×3 (10:24→21:56)
[2022-03-07] MEDS: guaiFENesin ER 600 MG TAB PO SCH ×2 (10:25→21:46)
[2022-03-07] MEDS: Pramipexole Di-HCl 0.25 MG TAB PO SCH ×2 (10:25→21:46)
[2022-03-07] MEDS: Amlodipine 5 MG TAB PO SCH (10:26)
[2022-03-07] MEDS: Potassium Chloride 20 MEQ TAB PO SCH ×2 (10:27→17:43)
[2022-03-07] MEDS: Bumetanide 1 MG TAB PO SCH (10:28)
[2022-03-07] MEDS: Fluticasone Propionate Nasal Spray 16 gm Bottle NASAL SCH (10:28)
[2022-03-07] MEDS: Lisinopril 20 MG TAB PO SCH (10:29)
[2022-03-08 06:01] LABS: #Lymphocytes 0.6 thou/uL (1.20-3.40); #Monocytes 0.5 thou/uL (0.11-0.59); #Neutrophils 4.5 thou/uL (1.40-6.50); %Basophils 0.4 % (0.0-1.0); %Eosinophils 0.3 % (0.0-10.0); %Lymphocytes 10.3 % (21.0-51.0); %Monocytes 8.7 % (0.0-10.0); %Neutrophils 80.3 % (42.0-75.0); Hemoglobin 15.1 g/dL (12.0-16.0); Mean Corpuscular HGB CONC 31.8 g/dL (32.0-36.0); Mean Corpuscular Hemoglobin 28.8 pg (27.0-31.0); Mean Corpuscular Volume 90.6 fl (78.0-98.0); Mean Platelet Volume 10.4 fL (7.4-10.4); Platelet Count 301 10x3/uL (130-400); RBC Distribution Width 14.8 % (11.5-14.5); Red Blood Cell (RBC) Count 5.26 mill/uL (4.20-5.40); White Blood Cell (WBC) Count 5.6 10x3/uL (4.8-10.8)
[2022-03-08 06:09] LABS: Anion Gap 13 mmol/L (10-20); BUN (Urea Nitrogen) 25 mg/dL (9.8-20.1); Calc. Creatinine Clearance 38 mL/min (70-130); Calcium 8.2 mg/dL (7.8-10.44); Carbon Dioxide 19 mmol/L (23-31); Chloride 110 mmol/L (98-107); Estimated GFR 40; Glucose 112 mg/dL (83-110); Potassium 3.7 mmol/L (3.5-5.1); Sodium 138 mmol/L (136-145)
[2022-03-08] MEDS: hydrALAZINE 25 MG TAB PO SCH ×3 (09:45→21:47)
[2022-03-08] MEDS: Potassium Chloride 20 MEQ TAB PO SCH ×2 (09:45→17:36)
[2022-03-08] MEDS: Amlodipine 5 MG TAB PO SCH (09:45)
[2022-03-08] MEDS: Fluticasone Propionate Nasal Spray 16 gm Bottle NASAL SCH (09:45)
[2022-03-08] MEDS: Bumetanide 1 MG TAB PO SCH (09:45)
[2022-03-08] MEDS: guaiFENesin ER 600 MG TAB PO SCH ×2 (09:45→21:45)
[2022-03-08] MEDS: Multivitamin w/Zinc Stress 1 TAB PO SCH (09:45)
[2022-03-08] MEDS: Pramipexole Di-HCl 0.25 MG TAB PO SCH ×2 (09:46→21:46)
[2022-03-08] MEDS: Lisinopril 20 MG TAB PO SCH (09:46)
[2022-03-08] MEDS: Apixaban 2.5 MG TAB PO SCH ×2 (09:46→21:47)
[2022-03-08] MEDS: Magnesium Oxide 400 MG TAB PO SCH (09:46)
[2022-03-08] MEDS: Amiodarone 200 MG TAB PO SCH (09:46)
[2022-03-08] MEDS: Benzonatate 100 MG CAP PO SCH ×3 (09:46→21:47)
[2022-03-08] MEDS: Metoprolol Tartrate 50 MG TAB PO SCH ×2 (09:47→21:46)
[2022-03-09] MEDS: Metoprolol Tartrate 50 MG TAB PO SCH ×2 (08:08→21:38)
[2022-03-09] MEDS: Magnesium Oxide 400 MG TAB PO SCH (08:08)
[2022-03-09] MEDS: Amiodarone 200 MG TAB PO SCH (08:08)
[2022-03-09] MEDS: Apixaban 2.5 MG TAB PO SCH ×2 (08:08→21:38)
[2022-03-09] MEDS: Bumetanide 1 MG TAB PO SCH (08:08)
[2022-03-09] MEDS: Lisinopril 20 MG TAB PO SCH (08:08)
[2022-03-09] MEDS: Potassium Chloride 20 MEQ TAB PO SCH ×2 (08:08→15:45)
[2022-03-09] MEDS: Multivitamin w/Zinc Stress 1 TAB PO SCH (08:08)
[2022-03-09] MEDS: Benzonatate 100 MG CAP PO SCH ×3 (08:09→21:38)
[2022-03-09] MEDS: guaiFENesin ER 600 MG TAB PO SCH ×2 (08:09→21:38)
[2022-03-09] MEDS: Pramipexole Di-HCl 0.25 MG TAB PO SCH ×2 (08:12→21:37)
[2022-03-09] MEDS: Fluticasone Propionate Nasal Spray 16 gm Bottle NASAL SCH (08:12)
[2022-03-09] MEDS: Amlodipine 5 MG TAB PO SCH (08:25)
[2022-03-09] MEDS: hydrALAZINE 25 MG TAB PO SCH ×3 (08:26→21:36)
[2022-03-10] MEDS: Pramipexole Di-HCl 0.25 MG TAB PO SCH ×2 (07:57→21:37)
[2022-03-10] MEDS: Apixaban 2.5 MG TAB PO SCH ×2 (07:57→21:38)
[2022-03-10] MEDS: Multivitamin w/Zinc Stress 1 TAB PO SCH (07:57)
[2022-03-10] MEDS: Metoprolol Tartrate 50 MG TAB PO SCH ×2 (07:57→21:38)
[2022-03-10] MEDS: Lisinopril 20 MG TAB PO SCH (07:57)
[2022-03-10] MEDS: Magnesium Oxide 400 MG TAB PO SCH (07:58)
[2022-03-10] MEDS: Bumetanide 1 MG TAB PO SCH (07:58)
[2022-03-10] MEDS: Benzonatate 100 MG CAP PO SCH ×3 (07:58→21:37)
[2022-03-10] MEDS: guaiFENesin ER 600 MG TAB PO SCH ×2 (07:58→21:37)
[2022-03-10] MEDS: Amiodarone 200 MG TAB PO SCH (07:58)
[2022-03-10] MEDS: Potassium Chloride 20 MEQ TAB PO SCH ×2 (07:58→15:59)
[2022-03-10] MEDS: Fluticasone Propionate Nasal Spray 16 gm Bottle NASAL SCH (07:59)
[2022-03-10] MEDS: hydrALAZINE 25 MG TAB PO SCH ×3 (09:11→21:37)
[2022-03-10] MEDS: Amlodipine 5 MG TAB PO SCH (09:11)
[2022-03-10] MEDS ORDERED: Metoprolol Tartrate 50 MG TAB PO SCH (10:30)
[2022-03-11 05:55] LABS: #Basophils 0.1 thou/uL (0.0-0.2); #Lymphocytes 0.8 thou/uL (1.20-3.40); #Monocytes 0.5 thou/uL (0.11-0.59); #Neutrophils 5.2 thou/uL (1.40-6.50); %Basophils 1.1 % (0.0-1.0); %Lymphocytes 11.6 % (21.0-51.0); %Monocytes 7.4 % (0.0-10.0); %Neutrophils 79.8 % (42.0-75.0); Hemoglobin 14.7 g/dL (12.0-16.0); Mean Corpuscular HGB CONC 31.1 g/dL (32.0-36.0); Mean Corpuscular Hemoglobin 28.7 pg (27.0-31.0); Mean Corpuscular Volume 92.5 fl (78.0-98.0); Mean Platelet Volume 9.7 fL (7.4-10.4); Platelet Count 392 10x3/uL (130-400); RBC Distribution Width 15.3 % (11.5-14.5); Red Blood Cell (RBC) Count 5.13 mill/uL (4.20-5.40); White Blood Cell (WBC) Count 6.6 10x3/uL (4.8-10.8)
[2022-03-11 06:07] LABS: Anion Gap 12 mmol/L (10-20); BUN (Urea Nitrogen) 33 mg/dL (9.8-20.1); Calc. Creatinine Clearance 33 mL/min (70-130); Calcium 8.4 mg/dL (7.8-10.44); Carbon Dioxide 17 mmol/L (23-31); Chloride 113 mmol/L (98-107); Estimated GFR 34; Glucose 106 mg/dL (83-110); Potassium 4.4 mmol/L (3.5-5.1); Sodium 138 mmol/L (136-145)
[2022-03-11] MEDS: Potassium Chloride 20 MEQ TAB PO SCH ×2 (08:44→18:04)
[2022-03-11] MEDS: Magnesium Oxide 400 MG TAB PO SCH (08:44)
[2022-03-11] MEDS: Amiodarone 200 MG TAB PO SCH (08:45)
[2022-03-11] MEDS: Amlodipine 5 MG TAB PO SCH (08:46)
[2022-03-11] MEDS: guaiFENesin ER 600 MG TAB PO SCH ×2 (08:46→20:54)
[2022-03-11] MEDS: Bumetanide 1 MG TAB PO SCH (08:46)
[2022-03-11] MEDS: Hydroxyurea 500 MG CAP PO SCH (08:47)
[2022-03-11] MEDS: hydrALAZINE 25 MG TAB PO SCH ×3 (08:47→20:54)
[2022-03-11] MEDS: Pramipexole Di-HCl 0.25 MG TAB PO SCH ×2 (08:48→20:54)
[2022-03-11] MEDS: Multivitamin w/Zinc Stress 1 TAB PO SCH (08:48)
[2022-03-11] MEDS: Lisinopril 20 MG TAB PO SCH (08:48)
[2022-03-11] MEDS: Benzonatate 100 MG CAP PO SCH ×3 (08:48→20:55)
[2022-03-11] MEDS: Apixaban 2.5 MG TAB PO SCH ×2 (08:48→20:54)
[2022-03-11] MEDS: Fluticasone Propionate Nasal Spray 16 gm Bottle NASAL SCH (08:49)
[2022-03-11] MEDS: Metoprolol Tartrate 50 MG TAB PO SCH ×2 (08:49→20:54)
[2022-03-11] MEDS ORDERED: Sodium Chloride 0.9% 1,000 ML IV SCH (11:30)
[2022-03-12] MEDS: Potassium Chloride 20 MEQ TAB PO SCH ×2 (08:27→16:27)
[2022-03-12] MEDS: Magnesium Oxide 400 MG TAB PO SCH (08:28)
[2022-03-12] MEDS: Multivitamin w/Zinc Stress 1 TAB PO SCH (08:28)
[2022-03-12] MEDS: Bumetanide 1 MG TAB PO SCH (08:28)
[2022-03-12] MEDS: guaiFENesin ER 600 MG TAB PO SCH ×2 (08:28→21:09)
[2022-03-12] MEDS: Benzonatate 100 MG CAP PO SCH ×3 (08:28→21:08)
[2022-03-12] MEDS: Metoprolol Tartrate 50 MG TAB PO SCH ×2 (08:29→21:08)
[2022-03-12] MEDS: Apixaban 2.5 MG TAB PO SCH ×2 (08:29→21:09)
[2022-03-12] MEDS: Lisinopril 20 MG TAB PO SCH (08:29)
[2022-03-12] MEDS: Amiodarone 200 MG TAB PO SCH (08:30)
[2022-03-12] MEDS: Amlodipine 5 MG TAB PO SCH (08:30)
[2022-03-12] MEDS: Pramipexole Di-HCl 0.25 MG TAB PO SCH ×2 (08:31→21:08)
[2022-03-12] MEDS: hydrALAZINE 25 MG TAB PO SCH ×3 (08:31→21:08)
[2022-03-12] MEDS: Fluticasone Propionate Nasal Spray 16 gm Bottle NASAL SCH (08:32)
[2022-03-13 06:03] LABS: #Basophils 0.1 thou/uL (0.0-0.2); #Lymphocytes 0.6 thou/uL (1.20-3.40); #Monocytes 0.6 thou/uL (0.11-0.59); #Neutrophils 4.1 thou/uL (1.40-6.50); %Basophils 2.2 % (0.0-1.0); %Eosinophils 0.1 % (0.0-10.0); %Lymphocytes 10.2 % (21.0-51.0); %Monocytes 10.9 % (0.0-10.0); %Neutrophils 76.6 % (42.0-75.0); Hemoglobin 14.7 g/dL (12.0-16.0); Mean Corpuscular HGB CONC 31.6 g/dL (32.0-36.0); Mean Corpuscular Volume 91.8 fl (78.0-98.0); Mean Platelet Volume 9.3 fL (7.4-10.4); Platelet Count 403 10x3/uL (130-400); Red Blood Cell (RBC) Count 5.07 mill/uL (4.20-5.40); White Blood Cell (WBC) Count 5.3 10x3/uL (4.8-10.8)
[2022-03-13 06:17] LABS: Anion Gap 13 mmol/L (10-20); BUN (Urea Nitrogen) 29 mg/dL (9.8-20.1); Calc. Creatinine Clearance 34 mL/min (70-130); Calcium 8.5 mg/dL (7.8-10.44); Carbon Dioxide 16 mmol/L (23-31); Chloride 114 mmol/L (98-107); Estimated GFR 35; Glucose 104 mg/dL (83-110); Potassium 4.4 mmol/L (3.5-5.1); Sodium 139 mmol/L (136-145)
[2022-03-13] MEDS: Multivitamin w/Zinc Stress 1 TAB PO SCH (07:51)
[2022-03-13] MEDS: Apixaban 2.5 MG TAB PO SCH ×2 (07:52→21:16)
[2022-03-13] MEDS: Magnesium Oxide 400 MG TAB PO SCH (07:52)
[2022-03-13] MEDS: Bumetanide 1 MG TAB PO SCH (07:52)
[2022-03-13] MEDS: Amiodarone 200 MG TAB PO SCH (07:52)
[2022-03-13] MEDS: Metoprolol Tartrate 50 MG TAB PO SCH ×2 (07:52→21:15)
[2022-03-13] MEDS: Potassium Chloride 20 MEQ TAB PO SCH ×2 (07:52→15:59)
[2022-03-13] MEDS: Lisinopril 20 MG TAB PO SCH (07:53)
[2022-03-13] MEDS: Amlodipine 5 MG TAB PO SCH (07:53)
[2022-03-13] MEDS: guaiFENesin ER 600 MG TAB PO SCH ×2 (07:53→21:16)
[2022-03-13] MEDS: Benzonatate 100 MG CAP PO SCH ×3 (07:53→21:14)
[2022-03-13] MEDS: Pramipexole Di-HCl 0.25 MG TAB PO SCH ×2 (07:54→21:14)
[2022-03-13] MEDS: hydrALAZINE 25 MG TAB PO SCH ×3 (07:54→21:14)
[2022-03-13] MEDS: Fluticasone Propionate Nasal Spray 16 gm Bottle NASAL SCH (07:56)
[2022-03-14] MEDS: Potassium Chloride 20 MEQ TAB PO SCH ×2 (09:02→18:06)
[2022-03-14] MEDS: Lisinopril 20 MG TAB PO SCH (09:03)
[2022-03-14] MEDS: Hydroxyurea 500 MG CAP PO SCH (09:03)
[2022-03-14] MEDS: Benzonatate 100 MG CAP PO SCH ×3 (09:05→20:29)
[2022-03-14] MEDS: Multivitamin w/Zinc Stress 1 TAB PO SCH (09:05)
[2022-03-14] MEDS: Metoprolol Tartrate 50 MG TAB PO SCH ×2 (09:06→20:28)
[2022-03-14] MEDS: Amlodipine 5 MG TAB PO SCH (09:06)
[2022-03-14] MEDS: Pramipexole Di-HCl 0.25 MG TAB PO SCH ×2 (09:07→20:28)
[2022-03-14] MEDS: Magnesium Oxide 400 MG TAB PO SCH (09:08)
[2022-03-14] MEDS: Apixaban 2.5 MG TAB PO SCH ×2 (09:08→20:28)
[2022-03-14] MEDS: guaiFENesin ER 600 MG TAB PO SCH ×2 (09:08→20:28)
[2022-03-14] MEDS: Bumetanide 1 MG TAB PO SCH (09:08)
[2022-03-14] MEDS: hydrALAZINE 25 MG TAB PO SCH ×3 (09:09→20:27)
[2022-03-14] MEDS: Fluticasone Propionate Nasal Spray 16 gm Bottle NASAL SCH (09:09)
[2022-03-14] MEDS: Amiodarone 200 MG TAB PO SCH (09:09)
[2022-03-14] MEDS: Chloraseptic Spray 180 ml Bottle PO PRN (18:10)
[2022-03-15 06:15] LABS: Anion Gap 15 mmol/L (10-20); BUN (Urea Nitrogen) 30 mg/dL (9.8-20.1); Calc. Creatinine Clearance 32 mL/min (70-130); Calcium 8.7 mg/dL (7.8-10.44); Carbon Dioxide 16 mmol/L (23-31); Chloride 114 mmol/L (98-107); Estimated GFR 32; Glucose 99 mg/dL (83-110); Potassium 4.6 mmol/L (3.5-5.1); Sodium 140 mmol/L (136-145)
[2022-03-15 06:27] LABS: #Basophils 0.1 thou/uL (0.0-0.2); #Lymphocytes 0.7 thou/uL (1.20-3.40); #Monocytes 0.5 thou/uL (0.11-0.59); %Basophils 1.5 % (0.0-1.0); %Lymphocytes 10.5 % (21.0-51.0); %Monocytes 8.1 % (0.0-10.0); %Neutrophils 79.9 % (42.0-75.0); Mean Corpuscular HGB CONC 31.4 g/dL (32.0-36.0); Mean Corpuscular Volume 92.3 fl (78.0-98.0); Mean Platelet Volume 9.5 fL (7.4-10.4); Platelet Count 408 10x3/uL (130-400); RBC Distribution Width 15.6 % (11.5-14.5); Red Blood Cell (RBC) Count 4.84 mill/uL (4.20-5.40); White Blood Cell (WBC) Count 6.3 10x3/uL (4.8-10.8)
[2022-03-15] MEDS: hydrALAZINE 25 MG TAB PO SCH ×3 (08:39→19:13)
[2022-03-15] MEDS: Pramipexole Di-HCl 0.25 MG TAB PO SCH ×2 (08:39→20:39)
[2022-03-15] MEDS: Amiodarone 200 MG TAB PO SCH (08:39)
[2022-03-15] MEDS: guaiFENesin ER 600 MG TAB PO SCH ×2 (08:39→20:39)
[2022-03-15] MEDS: Multivitamin w/Zinc Stress 1 TAB PO SCH (08:39)
[2022-03-15] MEDS: Bumetanide 1 MG TAB PO SCH (08:39)
[2022-03-15] MEDS: Apixaban 2.5 MG TAB PO SCH ×2 (08:40→20:40)
[2022-03-15] MEDS: Amlodipine 5 MG TAB PO SCH (08:40)
[2022-03-15] MEDS: Benzonatate 100 MG CAP PO SCH ×3 (08:40→20:40)
[2022-03-15] MEDS: Magnesium Oxide 400 MG TAB PO SCH (08:41)
[2022-03-15] MEDS: Lisinopril 20 MG TAB PO SCH (08:41)
[2022-03-15] MEDS: Fluticasone Propionate Nasal Spray 16 gm Bottle NASAL SCH (08:41)
[2022-03-15] MEDS: Potassium Chloride 20 MEQ TAB PO SCH ×2 (08:41→17:31)
[2022-03-15] MEDS: Metoprolol Tartrate 50 MG TAB PO SCH ×2 (08:41→20:39)
[2022-03-16] MEDS: Bumetanide 1 MG TAB PO SCH (09:14)
[2022-03-16] MEDS: hydrALAZINE 25 MG TAB PO SCH ×3 (09:14→20:15)
[2022-03-16] MEDS: Multivitamin w/Zinc Stress 1 TAB PO SCH (09:14)
[2022-03-16] MEDS: Lisinopril 20 MG TAB PO SCH (09:15)
[2022-03-16] MEDS: Magnesium Oxide 400 MG TAB PO SCH (09:15)
[2022-03-16] MEDS: guaiFENesin ER 600 MG TAB PO SCH ×2 (09:15→20:08)
[2022-03-16] MEDS: Potassium Chloride 20 MEQ TAB PO SCH ×2 (09:15→17:17)
[2022-03-16] MEDS: Amlodipine 5 MG TAB PO SCH (09:16)
[2022-03-16] MEDS: Benzonatate 100 MG CAP PO SCH ×3 (09:16→20:10)
[2022-03-16] MEDS: Metoprolol Tartrate 50 MG TAB PO SCH ×2 (09:16→20:09)
[2022-03-16] MEDS: Amiodarone 200 MG TAB PO SCH (09:16)
[2022-03-16] MEDS: Apixaban 2.5 MG TAB PO SCH ×2 (09:17→20:09)
[2022-03-16] MEDS: Fluticasone Propionate Nasal Spray 16 gm Bottle NASAL SCH (09:17)
[2022-03-16] MEDS: Pramipexole Di-HCl 0.25 MG TAB PO SCH ×2 (09:17→20:09)
[2022-03-17 06:01] LABS: #Basophils 0.1 thou/uL (0.0-0.2); #Lymphocytes 0.8 thou/uL (1.20-3.40); #Monocytes 0.5 thou/uL (0.11-0.59); #Neutrophils 4.8 thou/uL (1.40-6.50); %Basophils 1.5 % (0.0-1.0); %Eosinophils 0.1 % (0.0-10.0); %Lymphocytes 12.6 % (21.0-51.0); %Monocytes 7.9 % (0.0-10.0); Hemoglobin 14.8 g/dL (12.0-16.0); Mean Corpuscular Hemoglobin 28.6 pg (27.0-31.0); Mean Corpuscular Volume 92.3 fl (78.0-98.0); Mean Platelet Volume 9.4 fL (7.4-10.4); Platelet Count 386 10x3/uL (130-400); RBC Distribution Width 15.8 % (11.5-14.5); Red Blood Cell (RBC) Count 5.17 mill/uL (4.20-5.40); White Blood Cell (WBC) Count 6.1 10x3/uL (4.8-10.8)
[2022-03-17 06:13] LABS: Anion Gap 14 mmol/L (10-20); BUN (Urea Nitrogen) 30 mg/dL (9.8-20.1); Calc. Creatinine Clearance 31 mL/min (70-130); Carbon Dioxide 16 mmol/L (23-31); Chloride 115 mmol/L (98-107); Estimated GFR 31; Glucose 112 mg/dL (83-110); Potassium 4.4 mmol/L (3.5-5.1); Sodium 141 mmol/L (136-145)
[2022-03-17] MEDS: hydrALAZINE 25 MG TAB PO SCH ×3 (08:31→20:38)
[2022-03-17] MEDS: Metoprolol Tartrate 50 MG TAB PO SCH ×2 (08:31→20:39)
[2022-03-17] MEDS: Apixaban 2.5 MG TAB PO SCH ×2 (08:31→20:38)
[2022-03-17] MEDS: Benzonatate 100 MG CAP PO SCH ×3 (08:31→20:37)
[2022-03-17] MEDS: Bumetanide 1 MG TAB PO SCH (08:31)
[2022-03-17] MEDS: Amlodipine 5 MG TAB PO SCH (08:31)
[2022-03-17] MEDS: Lisinopril 20 MG TAB PO SCH (08:32)
[2022-03-17] MEDS: guaiFENesin ER 600 MG TAB PO SCH ×2 (08:32→20:37)
[2022-03-17] MEDS: Potassium Chloride 20 MEQ TAB PO SCH ×2 (08:32→17:19)
[2022-03-17] MEDS: Multivitamin w/Zinc Stress 1 TAB PO SCH (08:33)
[2022-03-17] MEDS: Amiodarone 200 MG TAB PO SCH (08:33)
[2022-03-17] MEDS: Fluticasone Propionate Nasal Spray 16 gm Bottle NASAL SCH (08:33)
[2022-03-17] MEDS: Magnesium Oxide 400 MG TAB PO SCH (08:33)
[2022-03-17] MEDS: Pramipexole Di-HCl 0.25 MG TAB PO SCH ×2 (08:33→20:37)
[2022-03-17] MEDS ORDERED: Bumetanide 1 MG TAB PO SCH ×2 (09:32→09:45)
[2022-03-18 06:16] LABS: #Basophils 0.1 thou/uL (0.0-0.2); #Lymphocytes 0.8 thou/uL (1.20-3.40); #Monocytes 0.4 thou/uL (0.11-0.59); #Neutrophils 4.4 thou/uL (1.40-6.50); %Basophils 1.2 % (0.0-1.0); %Lymphocytes 14.2 % (21.0-51.0); %Monocytes 7.2 % (0.0-10.0); %Neutrophils 77.4 % (42.0-75.0); Hemoglobin 14.5 g/dL (12.0-16.0); Mean Corpuscular HGB CONC 31.4 g/dL (32.0-36.0); Mean Corpuscular Volume 92.5 fl (78.0-98.0); Mean Platelet Volume 9.3 fL (7.4-10.4); Platelet Count 345 10x3/uL (130-400); RBC Distribution Width 15.9 % (11.5-14.5); White Blood Cell (WBC) Count 5.7 10x3/uL (4.8-10.8)
[2022-03-18 06:26] LABS: Anion Gap 14 mmol/L (10-20); BUN (Urea Nitrogen) 28 mg/dL (9.8-20.1); Calc. Creatinine Clearance 34 mL/min (70-130); Calcium 8.9 mg/dL (7.8-10.44); Carbon Dioxide 16 mmol/L (23-31); Chloride 115 mmol/L (98-107); Estimated GFR 35; Glucose 106 mg/dL (83-110); Potassium 4.7 mmol/L (3.5-5.1); Sodium 140 mmol/L (136-145)
[2022-03-18] MEDS: Potassium Chloride 20 MEQ TAB PO SCH ×2 (08:08→16:02)
[2022-03-18] MEDS: Benzonatate 100 MG CAP PO SCH ×3 (08:08→20:45)
[2022-03-18] MEDS: guaiFENesin ER 600 MG TAB PO SCH ×2 (08:08→20:46)
[2022-03-18] MEDS: Multivitamin w/Zinc Stress 1 TAB PO SCH (08:09)
[2022-03-18] MEDS: Bumetanide 1 MG TAB PO SCH (08:09)
[2022-03-18] MEDS: Amlodipine 5 MG TAB PO SCH (08:09)
[2022-03-18] MEDS: Amiodarone 200 MG TAB PO SCH (08:09)
[2022-03-18] MEDS: Pramipexole Di-HCl 0.25 MG TAB PO SCH ×2 (08:09→20:45)
[2022-03-18] MEDS: Magnesium Oxide 400 MG TAB PO SCH (08:09)
[2022-03-18] MEDS: Hydroxyurea 500 MG CAP PO SCH (08:09)
[2022-03-18] MEDS: Apixaban 2.5 MG TAB PO SCH ×2 (08:10→20:46)
[2022-03-18] MEDS: Lisinopril 20 MG TAB PO SCH (08:10)
[2022-03-18] MEDS: Fluticasone Propionate Nasal Spray 16 gm Bottle NASAL SCH (08:10)
[2022-03-18] MEDS: Metoprolol Tartrate 50 MG TAB PO SCH ×2 (08:10→20:45)
[2022-03-18] MEDS: hydrALAZINE 25 MG TAB PO SCH ×3 (09:13→20:45)
[2022-03-19] MEDS: Potassium Chloride 20 MEQ TAB PO SCH (08:55)
[2022-03-19] MEDS: Benzonatate 100 MG CAP PO SCH ×3 (08:55→20:45)
[2022-03-19] MEDS: Fluticasone Propionate Nasal Spray 16 gm Bottle NASAL SCH (08:55)
[2022-03-19] MEDS: hydrALAZINE 25 MG TAB PO SCH ×3 (08:55→20:50)
[2022-03-19] MEDS: guaiFENesin ER 600 MG TAB PO SCH (08:55)
[2022-03-19] MEDS: Amiodarone 200 MG TAB PO SCH (08:56)
[2022-03-19] MEDS: Pramipexole Di-HCl 0.25 MG TAB PO SCH ×2 (08:56→20:48)
[2022-03-19] MEDS: Apixaban 2.5 MG TAB PO SCH ×2 (08:56→20:48)
[2022-03-19] MEDS: Lisinopril 20 MG TAB PO SCH (08:56)
[2022-03-19] MEDS: Multivitamin w/Zinc Stress 1 TAB PO SCH (08:56)
[2022-03-19] MEDS: Amlodipine 5 MG TAB PO SCH (08:56)
[2022-03-19] MEDS: Magnesium Oxide 400 MG TAB PO SCH (08:56)
[2022-03-19] MEDS: Bumetanide 1 MG TAB PO SCH (08:57)
[2022-03-19] MEDS: Metoprolol Tartrate 50 MG TAB PO SCH ×2 (09:43→20:50)
[2022-03-19 16:31] LABS: Clarity Clear (Clear); Glucose, Urine (Dipstick) Negative (Negative); Ketone, Urine Negative (Negative); Leukocyte Negative (Negative); Nitrite Negative (Negative); Protein, Urine (Dipstick) 100 mg/dL (Neg-Trace)
[2022-03-19 16:32] LABS: Bilirubin Negative (Negative); Blood, Urine Negative (Negative); Urobilinogen 0.2 mg/dL (Less than 2)
[2022-03-19 16:34] LABS: Bacteria/HPF None Seen HPF (None Seen); RBC/HPF None Seen HPF (0-3); Squamous Epithelial 0-3 HPF (0-3); WBC/HPF 0-3 HPF (0-3)
[2022-03-20 06:42] LABS: Calc. Creatinine Clearance 32 mL/min (70-130); Estimated GFR 33
[2022-03-20 06:44] LABS: #Basophils 0.1 thou/uL (0.0-0.2); #Lymphocytes 0.6 thou/uL (1.20-3.40); #Monocytes 0.4 thou/uL (0.11-0.59); #Neutrophils 3.9 thou/uL (1.40-6.50); %Eosinophils 0.1 % (0.0-10.0); %Lymphocytes 12.5 % (21.0-51.0); %Monocytes 7.1 % (0.0-10.0); %Neutrophils 78.3 % (42.0-75.0); Anion Gap 13 mmol/L (10-20); BUN (Urea Nitrogen) 28 mg/dL (9.8-20.1); Calcium 8.8 mg/dL (7.8-10.44); Carbon Dioxide 16 mmol/L (23-31); Chloride 114 mmol/L (98-107); Glucose 102 mg/dL (83-110); Hemoglobin 14.2 g/dL (12.0-16.0); Mean Corpuscular HGB CONC 32.3 g/dL (32.0-36.0); Mean Corpuscular Hemoglobin 29.6 pg (27.0-31.0); Mean Corpuscular Volume 91.7 fl (78.0-98.0); Mean Platelet Volume 9.4 fL (7.4-10.4); Platelet Count 311 10x3/uL (130-400); Potassium 4.2 mmol/L (3.5-5.1); RBC Distribution Width 15.9 % (11.5-14.5); Red Blood Cell (RBC) Count 4.78 mill/uL (4.20-5.40); Sodium 139 mmol/L (136-145)
[2022-03-20] MEDS: Lisinopril 20 MG TAB PO SCH (08:50)
[2022-03-20] MEDS: Amlodipine 5 MG TAB PO SCH (08:51)
[2022-03-20] MEDS: Magnesium Oxide 400 MG TAB PO SCH (08:51)
[2022-03-20] MEDS: Apixaban 2.5 MG TAB PO SCH ×2 (08:52→21:15)
[2022-03-20] MEDS: Potassium Chloride 20 MEQ TAB PO SCH (08:52)
[2022-03-20] MEDS: hydrALAZINE 25 MG TAB PO SCH ×3 (08:52→21:15)
[2022-03-20] MEDS: Multivitamin w/Zinc Stress 1 TAB PO SCH (08:52)
[2022-03-20] MEDS: Benzonatate 100 MG CAP PO SCH (08:53)
[2022-03-20] MEDS: Metoprolol Tartrate 50 MG TAB PO SCH ×2 (08:53→21:15)
[2022-03-20] MEDS: Bumetanide 1 MG TAB PO SCH (08:54)
[2022-03-20] MEDS: Amiodarone 200 MG TAB PO SCH (08:54)
[2022-03-20] MEDS: Pramipexole Di-HCl 0.25 MG TAB PO SCH ×2 (08:55→21:14)
[2022-03-20] MEDS: Fluticasone Propionate Nasal Spray 16 gm Bottle NASAL SCH (08:56)
[2022-03-20] MEDS ORDERED: Famotidine 20 MG TAB PO SCH (12:00)
[2022-03-21 05:58] LABS: INR-International Normal Ratio 1.2; Prothrombin Time 15.6 sec (12.0-14.7)
[2022-03-21] MEDS: Metoprolol Tartrate 50 MG TAB PO SCH ×2 (08:47→21:31)
[2022-03-21] MEDS: Lisinopril 20 MG TAB PO SCH (08:47)
[2022-03-21] MEDS: hydrALAZINE 25 MG TAB PO SCH ×3 (08:47→21:32)
[2022-03-21] MEDS: Multivitamin w/Zinc Stress 1 TAB PO SCH (08:47)
[2022-03-21] MEDS: Magnesium Oxide 400 MG TAB PO SCH (08:48)
[2022-03-21] MEDS: Pramipexole Di-HCl 0.25 MG TAB PO SCH ×2 (08:48→21:33)
[2022-03-21] MEDS: Potassium Chloride 20 MEQ TAB PO SCH (08:48)
[2022-03-21] MEDS: Amiodarone 200 MG TAB PO SCH (08:48)
[2022-03-21] MEDS: Amlodipine 5 MG TAB PO SCH (08:49)
[2022-03-21] MEDS: Apixaban 2.5 MG TAB PO SCH ×2 (08:49→21:32)
[2022-03-21] MEDS: Bumetanide 1 MG TAB PO SCH (08:49)
[2022-03-21] MEDS: Hydroxyurea 500 MG CAP PO SCH (08:49)
[2022-03-21] MEDS: Fluticasone Propionate Nasal Spray 16 gm Bottle NASAL SCH (08:49)
[2022-03-21] MEDS: Acetaminophen 500 MG TAB PO PRN (09:50)
[2022-03-21] MEDS: Famotidine 20 MG TAB PO SCH (11:38)
[2022-03-21 20:55] VITALS: TEMP 98.2
[2022-03-22 05:05] VITALS: BMI 28.5
[2022-03-22 06:05] LABS: #Basophils 0.1 thou/uL (0.0-0.2); #Lymphocytes 0.6 thou/uL (1.20-3.40); #Monocytes 0.5 thou/uL (0.11-0.59); %Basophils 2.1 % (0.0-1.0); %Eosinophils 0.6 % (0.0-10.0); %Lymphocytes 12.1 % (21.0-51.0); %Monocytes 8.7 % (0.0-10.0); %Neutrophils 76.6 % (42.0-75.0); Hemoglobin 14.2 g/dL (12.0-16.0); Mean Corpuscular HGB CONC 31.5 g/dL (32.0-36.0); Mean Corpuscular Hemoglobin 29.1 pg (27.0-31.0); Mean Corpuscular Volume 92.3 fl (78.0-98.0); Mean Platelet Volume 8.9 fL (7.4-10.4); Platelet Count 299 10x3/uL (130-400); Red Blood Cell (RBC) Count 4.88 mill/uL (4.20-5.40); White Blood Cell (WBC) Count 5.3 10x3/uL (4.8-10.8)
[2022-03-22 06:15] LABS: Anion Gap 12 mmol/L (10-20); BUN (Urea Nitrogen) 31 mg/dL (9.8-20.1); Calc. Creatinine Clearance 36 mL/min (70-130); Calcium 8.7 mg/dL (7.8-10.44); Carbon Dioxide 16 mmol/L (23-31); Chloride 115 mmol/L (98-107); Estimated GFR 38; Glucose 118 mg/dL (83-110); Potassium 4.1 mmol/L (3.5-5.1); Sodium 139 mmol/L (136-145)
[2022-03-22] MEDS: Fluticasone Propionate Nasal Spray 16 gm Bottle NASAL SCH (08:54)
[2022-03-22] MEDS: hydrALAZINE 25 MG TAB PO SCH ×2 (08:55→15:04)
[2022-03-22] MEDS: Metoprolol Tartrate 50 MG TAB PO SCH (08:55)
[2022-03-22] MEDS: Multivitamin w/Zinc Stress 1 TAB PO SCH (08:56)
[2022-03-22] MEDS: Amiodarone 200 MG TAB PO SCH (08:56)
[2022-03-22] MEDS: Amlodipine 5 MG TAB PO SCH (08:56)
[2022-03-22] MEDS: Potassium Chloride 20 MEQ TAB PO SCH (08:57)
[2022-03-22] MEDS: Apixaban 2.5 MG TAB PO SCH (08:57)
[2022-03-22] MEDS: Lisinopril 20 MG TAB PO SCH (08:57)
[2022-03-22] MEDS: Magnesium Oxide 400 MG TAB PO SCH (08:57)
[2022-03-22] MEDS: Bumetanide 1 MG TAB PO SCH (08:58)
[2022-03-22] MEDS: Pramipexole Di-HCl 0.25 MG TAB PO SCH (08:59)
[2022-03-22] MEDS: Famotidine 20 MG TAB PO SCH (11:58)
[2022-03-22 17:43] VITALS: BP 135/64
== END 2022-03-22 17:12 | DRG 947 ==
LOC: EEVIPCON 11:17 → NAV ACUTE 11:17
PROVIDERS: ADMIT General Practice; ATTEND Family Medicine
PROC: 8E0ZXY6 Isolation (ICD-10-PCS; principal; 2022-03-02)
DX: R53.81 Other malaise (principal); I21.A1 Myocardial infarction type 2; U07.1 COVID-19; J96.11 Chronic respiratory failure with hypoxia; D47.1 Chronic myeloproliferative disease; I13.0 Hypertensive heart and chronic kidney disease with heart failure and stage 1 through stage 4 chronic kidney disease, or unspecified chronic kidney disease; I48.91 Unspecified atrial fibrillation; E87.6 Hypokalemia; K21.00 Gastro-esophageal reflux disease with esophagitis, without bleeding; G25.81 Restless legs syndrome; N18.32 Chronic kidney disease, stage 3b; Z96.653 Presence of artificial knee joint, bilateral; R74.01 Elevation of levels of liver transaminase levels; I50.9 Heart failure, unspecified; D63.1 Anemia in chronic kidney disease; R13.10 Dysphagia, unspecified; E83.42 Hypomagnesemia; G62.9 Polyneuropathy, unspecified; Z87.11 Personal history of peptic ulcer disease; Z85.828 Personal history of other malignant neoplasm of skin; Z90.49 Acquired absence of other specified parts of digestive tract; Z90.710 Acquired absence of both cervix and uterus; Z90.89 Acquired absence of other organs; Z88.1 Allergy status to other antibiotic agents; Z88.0 Allergy status to penicillin; Z88.7 Allergy status to serum and vaccine; Z88.8 Allergy status to other drugs, medicaments and biological substances; Z80.3 Family history of malignant neoplasm of breast; Z82.49 Family history of ischemic heart disease and other diseases of the circulatory system
CPT/HCPCS: 36415; 71045; 80048; 80053; 80074; 80143; 81001; 82565; 83735; 83880; 85025; 85610; 87086; 80307; U0002